=== PATIENT | female | born 2000 | race Caucasian/White ===

== ENCOUNTER 2024-03-21 17:58 | Emergency (ER) | payer OTHER, SELFPAY ==
[2024-03-21 18:06] VITALS: BP 125/82; PULSE 71; TEMP 36.9; O2SAT 97; BMI 27.5
--- NOTE | 2024-03-21 18:27 | ECG_ITS ---
[facility] Test Date: 2024-03-21 Pat Name: BLAS TAPIA Department: Room: - Gender: Female Novel[employer] Worker: : 2000 Requested By: Order Number: [id number] Reading MD: FAITH WILLS Measurements Intervals [place] Rate: 74 P: 61 [place]: 138 QRS: 75 QRSD: 64 T: 68 QT: 364 QTc: 392 Interpretive Statements 1100 Sinus rhythm 1102 Sinus arrhythmia 9110 normal ECG No previous ECG available for comparison Electronically Signed On 03-22-2024 6:47:34 EDT by FAITH WILLS
[2024-03-21 18:37] LABS: Bilirubin Urine NEGATIVE (NEGATIVE); Blood Urine LARGE (NEGATIVE); Clarity Urine SL CLOUDY (CLEAR); Color Urine LT. YELLOW (YELLOW); Glucose Urine UA NEGATIVE (NEGATIVE); Ketones Urine NEGATIVE (NEGATIVE); Leukocyte Esterase Urine SMALL (NEGATIVE); Nitrite Urine NEGATIVE (NEGATIVE); Protein Urine NEGATIVE (NEG/TRACE); Specific Gravity Urine 1.025 (1.005-1.025); Urobilinogen Urine 0.2 EU/dL (0.2-1.0); pH Urine 7.5 (5.0-9.0)
[2024-03-21 18:38] LABS: HCG Qualitative Urine* NEGATIVE (NEGATIVE); Internal Control Within Normal Limits
[2024-03-21 18:40] LABS: Urine Microscopic Indicated YES
[2024-03-21 18:45] LABS: Amorphous Sediment Urine MANY; Bacteria Urine SMALL #/HPF (NONE SEEN); Cast Seen? NONE SEEN #/LPF (NONE SEEN); Crystals Seen? None Seen #/HPF (None Seen); Mucus Urine TRACE (NONE SEEN); Squamous Epithelial Cell Urine FEW #/LPF (NONE/RARE); Urine Culture Indicated YES
[2024-03-21 18:46] LABS: Basophils Absolute Auto 0.1 10^3/uL (0.0-0.1); Eosinophils Absolute Auto 0.6 10^3/uL (0.0-0.7); Eosinophils Percent Auto 8.4 % (0.9-7.0); Hematocrit 36.3 % (36.0-48.0); Hemoglobin 11.4 g/dL (12.0-16.0); Immature Granulocytes Abs Auto 0.02 10^3/uL (0.00-0.03); Immature Granulocytes Pct Auto 0.3 % (0.0-0.5); Lymphocytes Absolute Auto 1.8 10^3/uL (1.2-3.8); Lymphocytes Percent Auto 25.2 % (20.5-60.0); Mean Corpuscular HGB Conc 31.4 g/dL (29.9-35.2); Mean Corpuscular Hemoglobin 28.3 pg (26.7-34.0); Mean Corpuscular Volume 90.1 fL (81.0-99.0); Mean Platelet Volume 10.3 fL (9.5-13.5); Monocytes Absolute Auto 0.4 10^3/uL (0.3-0.8); Monocytes Percent Auto 6.3 % (1.7-12.0); Neutrophils Absolute Auto 4.1 10^3/uL (1.4-6.5); Neutrophils Percent Auto 58.8 % (43.0-75.0); Platelet Count 353 10^3/uL (150-450); Red Blood Count 4.03 10^6/uL (4.20-5.40); Red Cell Distribution Width 16.1 % (11.0-15.0)
[2024-03-21 18:47] LABS: Amphetamine Screen Urine NEGATIVE (NEGATIVE); Barbiturates Screen Urine NEGATIVE (NEGATIVE); Benzodiazepines Screen Urine NEGATIVE (NEGATIVE); Buprenorphine Screen Urine NEGATIVE (NEGATIVE); Cannabinoid Screen Urine NEGATIVE (NEGATIVE); Cocaine Screen Urine NEGATIVE (NEGATIVE); Methadone Screen Urine NEGATIVE (NEGATIVE); Methamphetamines Screen Urine NEGATIVE (NEGATIVE); Opiate Screen Urine NEGATIVE (NEGATIVE); Oxycodone Screen Urine NEGATIVE (NEGATIVE); Phencyclidine Screen Urine NEGATIVE (NEGATIVE); Tricyclic Antidepressant Urine NEGATIVE (NEGATIVE)
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
[2024-03-21 19:04] LABS: Alanine Aminotransferase 15 U/L (14-59); Albumin Globulin Ratio 0.9; Albumin Level 3.4 g/dL (3.4-5.0); Alkaline Phosphatase 111 U/L (46-116); Anion Gap 11.7; Aspartate Amino Transferase 11 U/L (15-37); BUN Creatinine Ratio 10.7; Bilirubin Total 0.2 mg/dL (0.2-1.0); Calcium 8.7 mg/dL (8.5-10.1); Carbon Dioxide 27.4 mmol/L (21.0-32.0); Chloride 104 mmol/L (98-107); Estimated GFR (African America >60 (>=60); Estimated GFR (Non-African Ame >60 (>=60); Globulin 3.7 g/dL; Glucose 96 mg/dL (74-106); Potassium 4.1 mmol/L (3.5-5.1); Salicylate <2.8 mg/dL (<=19.9); Sodium 139 mmol/L (136-145); Total Protein 7.1 g/dL (6.4-8.2)
[2024-03-21 19:07] LABS: Acetaminophen <2.0 ug/mL (10.0-30.0); Ethanol <3 mg/dL
[2024-03-21 19:30] VITALS: PULSE 74
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
[2024-03-21] MEDS: CEPHALEXIN 500 MG CAPSULE PO (21:42)
[2024-03-21 21:44] VITALS: BP 113/75; PULSE 71; TEMP 36.6; O2SAT 100
[2024-03-21 22:47] VITALS: BP 113/75; PULSE 70; TEMP 36.6; O2SAT 100
== END 2024-03-21 22:30 ==
PROVIDERS: Physician Assistant; Emergency Provider Internal Medicine; PCP Family Medicine
DX: F32.9 Major depressive disorder, single episode, unspecified (principal); N39.0 Urinary tract infection, site not specified; F41.9 Anxiety disorder, unspecified
CPT/HCPCS: 36415; 80053; 80179; 80307; 80320; 80329; 81001; 84703; 85025; 87086; 93005; 99285

== ENCOUNTER 2024-09-07 20:15 | Emergency (ER) | payer OTHER, SELFPAY ==
[2024-09-07 20:21] VITALS: BP 97/60; PULSE 88; TEMP 36.8; O2SAT 98; BMI 25.0
--- OUTSIDE RECORDS SUMMARY | 2024-09-07 20:21 | XMS_ITS | CCD ---
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 Name Role Phone DR ISAURA CROWLEY Attending Unavailable KEO, DR DELAROSA Consulting Unavailable KEO, DR DELAROSA Admitting Unavailable Anuja Max MD Primary Care Provider MD Mansoor Anuja A Primary Care Provider MD Gabe Regan Admit Provider [phone] MD Gabe Regan Attending Provider Anuja Max MD Primary Care Provider [phone] Gbae Regan Admitting Unavailable Max, Anuja A Primary Care Unavailable Gabe Regan Attending Unavailable Eleazar Pennington Attending Unavailab le Eleazar Pennington Admitting Unavailab le Max, Anuja A Primary Care Unavailable Anuja Max MD Primary Care Provider OSEI MERCADO Attending Unavailable OSEI MERCADO Referring Unavailable MAX, ANUJA A Primary Care Unavailable OSEI MERCADO Attending Unavailable OSEI MERCADO Referring Unavailable MAX, ANUJA A Primary Care Unavailable DEJAH DAVIES Attending Unavailable MAX, ANUJA A Referring Unavailable MAX, ANUJA A Primary Care Unavailable MAX, ANUJA A Primary Care Unavailable KARY DA SILVA Attending Unavailable MAX, ANUJA A Primary Care Unavailable STEPHEN PEREIRA Attending Unavailable KRYS PATRICIO Referring Unavailable MAX, ANUJA A Primary Care Unavailable OSEI MERCADO Attending Unavailable MAX, ANUJA A Referring Unavailable MAX, ANUJA A Primary Care Unavailable MAX, NAUJA A Primary Care Unavailable DONNIE GALLARDO Attending Unav ailable DONNIE GALLARDO Attending Unav ailable SAMIDONNIE Referring Unav ailable MAX, ANUJA A Primary Care Unavailable MAX, ANUJA A Primary Care Unavailable MAX, ANUJA A Primary Care Unavailable MONROE MURPHY Attending Unavailable MAX, ANUJA A. Primary Care Unavailable SAM MUNIZ Attending Unavailable CONCHA DUQUE Referring Unavailable MAX, ANUJA A Primary Care Unavailable KRKRYS JUDGE M Referring Unavailable MAX, ANUJA A Primary Care Unavailable SONDRA HDZ Referring Unavailable MAX, ANUJA A Primary Care Unavailable SONDRA HDZ Attending Unavailable MAX, ANUJA A Referring Unavailable MAX, ANUJA A Primary Care Unavailable KROTZERSERAFINA M Attending Unavailable MAX, ANUJA A Referring Unavailable MAX, ANUJA A Primary Care Unavailable KROTZER, KRYS M Attending Unavailable MAX, ANUJA A Referring Unavailable MAX, ANUJA A Primary Care Unavailable KROTZERKRYS M Attending Unavailable MAX, ANUJA A Referring Unavailable MAX, ANUJA A Primary Care Unavailable CONCHA DUQUE Attending Unavailable MAX, ANUJA A Referring Unavailable MAX, ANUJA A Primary Care Unavailable MAX, ANUJA A Referring Unavailable MAX, ANUJA A Primary Care Unavailable Allergies Allergy Classification Reported Allergen(s) Allergy Type Date of Onset Reaction(s) Facility (1 source) Penicillin Drug Allergy 7 [facility] Repository (13 sources) Penicillin G; Translations: [PENICILLIN G POTASSIUM] Drug Allergy 4 [facility] (20 sources) Penicillins; Translations: [PENICILLINS] Propensity to adverse reactions to drug 7 [facility] (1 source) Penicillins Drug allergy (disorder) 4 [facility] Repository Medications Current Medications Medication Drug Class(es) Dates Sig (Normalized) Sig (Original) [id number] actuat albuterol 0.09 mg/actuat metered dose inhaler (14 sources) beta2-Adrenergic Agonist take 2 puff(s) by inhalation every six hours as needed for wheezing albuterol (PROVENTIL HFA;VENTOLIN HFA) 90 mcg/actuation inhaler Inhale 2 puffs every 6 (six) hours as needed for wheezing. Active ARIPiprazole 5 mg oral tablet (12 sources) Atypical Antipsychotic Start: 03-23-2024 take 5 mg by mouth at bedtime Aripiprazole Active 5 MG PO Bedtime March 23, 2024 12:00am Start: 03-22-2024 End: 03-23-2024 take 2 mg by mouth at bedtime Aripiprazole Discontinue d 2 MG PO Bedtime March 22, 2024 12:00am March 23, 2024 10:45am take 1 tablet by larry th in the morning ARIPiprazole (ABILIFY) 10 mg tablet Take 1 tablet (10 mg total) by mouth in the morning. Active bisacodyl 5 mg delayed release oral tablet (1 source) Stimulant Laxative Start: 09-06-2024 take 1 tablet by mouth once daily as needed for constipation bisacodyL (DULCOLAX) 5 mg EC tablet Take 1 tablet (5 mg total) by mouth daily as needed for constipation. 14 tablet 09/06/2024 Active cephalexin 500 mg oral capsule (2 sources) Cephalosporin Antibacterial Start: 03-22-2024 End: 03-23-2024 take 500 mg by mouth three times daily Cephalexin Active 500 MG PO Three times daily 04 03March 23, 2024 10:45am take for 5 days. doxylamine succinate 25 mg oral tablet (9 sources) Start: 07-12-2024 End: 08-30-2024 take 1 tablet by mouth once daily as needed for nausea doxylamine (UNISOM) 25 mg tablet Indications: Nausea/vomiting in Take 1 tablet (25 mg total) by mouth nightly as needed for sleep or nausea. 30 tablet 1 07/12/2024 08/30/2024 Discontinued (Alternate therapy) fluconazole 150 mg oral tablet (1 source) Azole Antifungal Start: 02-16-2024 End: 02-19-2024 fluconazole (DIFLUCAN) 150 mg tablet Indications: Vaginal yeast infection Take one tablet by mouth today. May repeat in 3 days if symptoms persist. 2 tablet 02/16/2024 02/19/2024 Active hydrOXYzine pamoate 50 mg oral capsule (1 source) Antihistamine Start: 03-24-2024 take 50 mg by mouth every six hours Hydroxyzine Pamoate Active 50 MG PO Q6H March 24, 2024 12:00am metoclopramide 10 mg oral tablet (8 sources) Dopamine-2 Receptor Antagonist Start: 07-26-2024 End: 08-30-2024 take 1 tablet by mouth every six hours metoclopramide (REGLAN) 10 mg tablet Take 1 tablet (10 mg total) by mouth every 6 (six) hours. 30 tablet 07/26/2024 08/30/2024 Discontinued (Alternate therapy) Start: 07-17-2024 take 1 tablet by larry th every six hours metoclopramide (REGLAN) 10 mg tablet Take 1 tablet (10 mg total) by mouth every 6 (six) hours. 30 tablet 07/17/2024 Active metroNIDAZOLE 500 mg oral tablet (1 source) Nitroimidazole Antimicrobial Start: 02-16-2024 End: 02-23-2024 take 1 tablet by mouth in the morning, then take 1 tablet by mouth at bedtime metroNIDAZOLE (FLAGYL) 500 mg tablet Indications: BV (bacterial vaginosis) Take 1 tablet (500 mg total) by mouth in the morning and 1 tablet (500 mg total) before bedtime. Do all this for 7 days. 14 tablet 02/16/2024 02/23/2024 Active nicotine 2 mg chewing gum (1 source) Cholinergic Nicotinic Agonist Start: 03-23-2024 Nicotine (Polacrilex) Active 2 MG BUCCAL Every 2 hours March 23, 2024 12:00am ondansetron 4 mg disintegrating oral tablet (17 sources) Serotonin-3 Receptor Antagonist Start: 07-27-2024 End: 08-30-2024 ondansetron ODT (ZOFRAN ODT) 4 mg disintegrating tablet Indications: Nausea/vomiting in Dissolve 1 tablet (4 mg total) on tongue every 8 (eight) hours as needed for nausea or vomiting. 30 tablet 08/30/2024 Active Start: 07-29-2022 End: 08-26-2023 take 1 tablet by mouth every eight hours as needed for nausea ondansetron ODT (ZOFRAN ODT) 4 mg disintegrating tablet Dissolve 1 tablet (4 mg total) on tongue every 8 (eight) hours as needed for nausea for up to 10 doses. 10 tablet 0 07/29/2022 08/26/2023 Discontinued (Therapy completed) vits62/FA/om3/dha/epa ( GUMMY ORAL) (14 sources) vits62/FA/om3/dha/epa ( GUMMY ORAL) Take by mouth. Active pyridoxine hydrochloride 25 mg oral tablet (10 sources) Start : 07-12 End: 08-30 take 1 tablet by mouth at bedtime vitamin B-6 25 MG tablet Indications: Nausea/vomiting in TAKE 1 TABLET BY MOUTH IN THE MORNING, AT NOON, IN THE EVENING AND BEFORE BEDTIME 360 tablet 1 08/05/2024 08/30/2024 Discontinued (Alternate therapy) sertraline 100 mg oral tablet (11 sources) Serotonin Reuptake Inhibitor Start : 03-22 take 100 mg by mouth at bedtime Sertraline Active 100 MG PO Bedtime March 22, 2024 12:00am take 1 tablet by mouth in the mo rning sertraline (ZOLOFT) 25 mg tablet Take 1 tablet (25 mg total) by mouth in the morning. Active traZODone hydrochloride 50 mg oral tablet (1 source) Serotonin Reuptake Inhibitor Start: 03-23-2024 take 50 mg by mouth once daily at bedtime Trazodone Active 50 MG PO Daily at bedtime March 23, 2024 12:00am Completed/Discontinued Medications Medication Drug Class(es) Dates Sig (Normalized) Sig (Original) benzocaine 6 mg / menthol 10 mg oral lozenge (2 sources) Standardized Chemical Allergen Start: 07-29-2022 End: 08-26-2023 take 1 tablet by mouth every two hours as needed benzocaine-menthoL (CHLORASEPTIC SORE THROAT) 6-10 mg lozenge Dissolve 1 lozenge in the mouth every 2 (two) hours as needed for sore throat. 100 tablet 0 07/29/2022 08/26/2023 Discontinued (Therapy completed) benzonatate 100 mg oral capsule (2 sources) Non-narcotic Antitussive Start: 07-29-2022 End: 08-26-2023 take 1 capsule by mouth every eight hours benzonatate (TESSALON PERLES) 100 mg capsule Take 1 capsule (100 mg total) by mouth every 8 (eight) hours. 21 capsule 0 07/29/2022 08/26/2023 Discontinued (Therapy completed) ibuprofen 800 mg oral tablet (2 sources) Nonsteroidal Anti-inflammatory Drug Start: 07-29-2022 End: 08-26-2023 take 1 tablet by mouth three times daily ibuprofen (MOTRIN) 800 mg tablet Take 1 tablet (800 mg total) by mouth 3 (three) times a day. 21 tablet 0 07/29/2022 08/26/2023 Discontinued (Therapy completed) Problems Active Problems Problem Classification Problem Date Documented Da te Episodic/Chronic Abdominal pain (3 sources) Unspecified abdominal pain; Translations: [Abdominal pain] Onset: 04-18-2024 Episodic Anxiety disorders (17 sources) Anxiety; Translations: [Anxiety disorder, unspecified] Onset: 03-21-2024 03-22-2024 Chronic Asthma (14 sources) Mild intermittent asthma; Translations: [Mild intermittent asthma, uncomplicated] Onset: 07-03-2024 07-03-2024 Chronic Menstrual disorders (3 sources) Dysmenorrhea, unspecified; Translations: [Irregular menstruation, unspecified] Onset: 04-17-2024 04-17-2024 Chronic Mood disorders (20 sources) Depressive disorder; Translations: [Depression] Onset: 03-21-2024 03-22-2024 Chronic Other complications of (18 sources) Vomiting of , unspecified; Translations: [Unspecified vomiting of , unspecified as to episode of care or not applicable] Onset: 07-12-2024 07-12-2024 Episodic Other complications of (1 source) Mild hyperemesis gravidarum; Translations: [Mild hyperemesis gravidarum] Onset: 07-17-2024 Episodic Other complications of (1 source) Other specified related conditions, first trimester; Translations: [Other specified related conditions, first trimester] Onset: 06-14-2024 Episodic Other and delivery including normal (6 sources) First trimester ; Translations: [Encounter for supervision of normal , unspecified, first trimester] Onset: 08-02-2024 07-03-2024 Episodic Other screening for suspected conditions (not mental disorders or infectious disease) (6 sources) Encounter for screening for malignant neoplasm of cervix; Translations: [Patient encounter status] Onset: 07-28-2021 Episodic Personality disorders (17 sources) Dependent personality disorder; 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] Onset: 03-21-2024 03-22-2024 Chronic Residual codes; unclassified (1 source) Gestation period, 10 weeks; Translations: [10 weeks gestation of ] 08-02-2024 Episodic Unclassified (1 source) Vomiting During Onset: 07-17-2024 Unclassified (1 source) Earache Onset: 12-21-2023 Unclassified (1 source) PAIN RIGHT EAR Onset: 12-21-2023 Unclassified (1 source) New Patient Onset: 08-26-2023 Unclassified (1 source) Routine Visit Onset: 08-30-2024 Unclassified (1 source) Initial Visit Onset: 08-02-2024 Unclassified (1 source) Annual Exam Onset: 11-28-2023 Past or Other Problems Problem Classification Problem Date Documented Date Episodic/Chronic Cardiac dysrhythmias (1 source) Palpitations Onset: 11-14-2023 Episodic Conditions associated with dizziness or vertigo (13 sources) Dizziness; Translations: [Dizziness and giddiness] Onset: 11-14-2023 08-26-2023 Episodic Genitourinary symptoms and ill-defined conditions (4 sources) Urinary frequency; Translations: [Dysuria] Onset: 02-15-2024 02-15-2024 Episodic Immunizations and screening for infectious disease (5 sources) Encounter for screening for human papillomavirus (HPV); Translations: [Encounter for screening for infections with a predominantly sexual mode of transmission] Onset: 08-04-2021 02-15-2024 Episodic Inflammatory diseases of female pelvic organs (1 source) Bacterial vaginosis; Translations: [Acute vaginitis] 02-16-2024 Episodic Mood disorders (20 sources) Mood disorders Onset: 11-28-2023 11-28-2023 Mycoses (1 source) Candidiasis of vagina; Translations: [Vaginal yeast infection] 02-16-2024 Episodic Other ear and sense organ disorders (1 source) Unspecified acute noninfective otitis externa, right ear; Translations: [Unspecified acute noninfective otitis externa, right ear] Onset: 12-21-2023 Episodic Other female genital disorders (2 sources) Other specified noninflammatory disorders of vagina; Translations: [Other specified noninflammatory disorders of vagina] Onset: 02-15-2024 Episodic Other female genital disorders (2 sources) Unspecified condition associated with female genital organs and menstrual cycle; Translations: [Unspecified condition associated with female genital organs and menstrual cycle] Onset: 02-15-2024 Episodic Other female genital disorders (1 source) Pruritus of vagina; Translations: [Other specified noninflammatory disorders of vagina] 02-15-2024 Episodic Other female genital disorders (1 source) Burning sensation of vagina; Translations: [Unspecified condition associated with female genital organs and menstrual cycle] 02-15-2024 Episodic Other lower respiratory disease (1 source) Shortness of breath Onset: 11-14-2023 Episodic Otitis media and related conditions (1 source) Otitis media, unspecified, unspecified ear; Translations: [Otitis media, unspecified, unspecified ear] Onset: 12-21-2023 Episodic Unclassified (20 sources) Onset: 11-28-2023 11-28-2023 Urinary tract infections (1 source) Acute cystitis without hematuria; Translations: [Acute cystitis without hematuria] Onset: 03-05-2024 Episodic Results Test Name Value Interpretation Reference Range Facility CHLAMYDIA/GC BY PCRon 2024 CHLAMYDIA/GC BY PCR SPECIMEN SOURCE CERVIX CHLAMYDIA DNA(PCR) Negative (qualifier value) Chlamydia trachomatis not detected by nucleic acid amplification. This does not exclude the possibility of infection because results are dependent on adequate specimen collection. GONORRHOEAE DNA(PCR) Negative (qualifier value) Neisseria gonorrhoeae not detected by nucleic acid amplification. This does not exclude the possibility of infection because results are dependent on adequate specimen collection. Normal [facility] Comment on above: Performed By: #### C GS #### [facility] ([id number]) [address], [address] [place] [address] BASIC METABOLIC PANLon 07-26 Anion gap [Moles/Vol] 9 mmol/L Normal 5-15 [facility] Comment on above: Performed By: #### 2 0415-6 #### [facility] ([id number]) [address], [address] [place] [address] Calcium [Mass/Vol] 9.1 mg/dL Normal 8.5-10.5 [facility] Comment on above: Performed By: #### 2 0415-6 #### [facility] ([id number]) [address], [address] [place] [address] Chloride [Moles/Vol] 104 mmol/L Normal 98-109 [facility] Comment on above: Performed By: #### 2 0415-6 #### [facility] ([id number]) [address], [address] [place] [address] CO2 [Moles/Vol] 22 mmol/L Normal 22-32 [facility] Comment on above: Performed By: #### 2 0415-6 #### [facility] ([id number]) [address] [address] [place] [address] Creatinine [Mass/Vol] 0.54 mg/dL Normal 0.40-1.00 [facility] Comment on above: Result Comment: METH OD TRACEABLE TO IDMS STANDARD Performed By: #### 2 0415-6 #### [facility] ([id number]) [address], [address] [place] [address] eGFR (CKD-EPI) NON-RACE DEPENDENT >90 Normal >59 [facility] Comment on above: Result Comment: Reported eGFR is based on the CKD-EPI 2020 equation that does not use a race coefficient. Performed By: #### 2 0415-6 #### [facility] ([id number]) [address], [address] [place] [address] Glucose [Mass/Vol] 92 mg/dL Normal 65-99 [facility] Comment on above: Performed By: #### 2 0415-6 #### [facility] ([id number]) [address], [address] [place] [address] Potassium [Moles/Vol] 3.1 mmol/L Low 3.5-5.0 [facility] Comment on above: Performed By: #### 2 0415-6 #### [facility] ([id number]) [address], [address] [place] [address] Sodium [Moles/Vol] 135 mmol/L Normal 134-146 [facility] Comment on above: Performed By: #### 2 0415-6 #### [facility] ([id number]) [address], [address] [place] [address] Urea nitrogen [Mass/Vol] mg/dL Low 5-23 [facility] Comment on above: Performed By: #### 2 0415-6 #### [facility] ([id number]) [address], [address] [place] [address] CBC AND AUTO DIFFon 07-26-20 ABSOLUTE BASOPHIL 0.0 X10E9/L Normal 0.0-0.2 [facility] Comment on above: Performed By: #### 2 0415-6 #### [facility] ([id number]) [address], [address] [place] [address] ABSOLUTE NEUTROPHIL 5.6 X10E9/L Normal 1.5-6.6 [facility] Comment on above: Performed By: #### 2 0415-6 #### [facility] ([id number]) [address] [facility] [address] [place] [address] Basophils/100 WBC (Bld) 0.5 % Normal [facility] Comment on above: Performed By: #### 2 0415-6 #### [facility] ([id number]) [address] [address] [place] [address] Eosinophils (Bld) [#/Vol] 0.2 10*3/uL Normal 0.0-0.4 [facility] Comment on above: Performed By: #### 2 0415-6 #### [facility] ([id number]) [address] [address] [place] [address] Eosinophils/100 WBC (Bld) 2.4 % Normal [facility] Comment on above: Performed By: #### 2 0415-6 #### [facility] ([id number]) [address], [address] [place] [address] Erythrocyte distribution width (RBC) [Ratio] 15.6 % High 11.5-15.0 [facility] Comment on above: Performed By: #### 2 0415-6 #### [facility] ([id number]) [address] [address] [place] [address] Hematocrit (Bld) [Volume fraction] 37.4 % Normal 35-47 [facility] Comment on above: Performed By: #### 2 0415-6 #### [facility] ([id number]) [address] [address] [place] [address] Hemoglobin (Bld) [Mass/Vol] 12.6 g/dL Normal 11.7-15.5 [facility] Comment on above: Performed By: #### 2 0415-6 #### [facility] ([id number]) [address] [address] [place] [address] Lymphocytes (Bld) [#/Vol] 1.8 10*3/uL Normal 1.0-3.5 [facility] Comment on above: Performed By: #### 2 0415-6 #### [facility] ([id number]) [address] [address] [place] [address] Lymphocytes/100 WBC (Bld) 21.6 % Normal [facility] Comment on above: Performed By: #### 2 0415-6 #### [facility] ([id number]) [address] [address] [place] [address] MCH (RBC) [Entitic mass] 29.2 pg Normal 27-34 [facility] Comment on above: Performed By: #### 2 0415-6 #### [facility] ([id number]) [address] [address] [place] [address] MCHC (RBC) [Mass/Vol] 33.7 g/dL Normal 32-36 [facility] Comment on above: Performed By: #### 2 0415-6 #### [facility] ([id number]) [address] [place] [address] MCV (RBC) [Entitic vol] 87 fL Normal 80-100 [facility] Comment on above: Performed By: #### 2 0415-6 #### [facility] ([id number]) [address] [place] [address] Monocytes (Bld) [#/Vol] 0.5 10*3/uL Normal 0-0.9 [facility] Comment on above: Performed By: #### 2 0415-6 #### [facility] ([id number]) [address], [address] [place] [address] Monocytes/100 WBC (Bld) 6.5 % Normal [facility] Comment on above: Performed By: #### 2 0415-6 #### [facility] ([id number]) [address], [address] [place] [address] Neutrophils/100 WBC (Bld) 69.0 % Normal [facility] Comment on above: Performed By: #### 2 0415-6 #### [facility] ([id number]) [address], [address] [place] [address] Platelet mean volume (Bld) [Entitic vol] 10.0 fL Normal 7-12 [facility] Comment on above: Performed By: #### 2 0415-6 #### [facility] ([id number]) [address], [address] [place] [address] Platelets (Bld) [#/Vol] 260 10*3/uL Normal 150-450 [facility] Comment on above: Performed By: #### 2 0415-6 #### [facility] ([id number]) [address], [address] [place] [address] RBC COUNT 4.31 X10E12/L Normal 3.80-5.20 [facility] Comment on above: Performed By: #### 2 0415-6 #### [facility] ([id number]) [address], [address] [place] [address] WBC (Bld) [#/Vol] 8.1 10*3/uL Normal 4.0-11.0 [facility] Comment on above: Performed By: #### 2 0415-6 #### [facility] ([id number]) [address] [place] [address] HCG ( test) Ql (U)o n 07-26-2024 Beta HCG ( test) Ql (U) Positive Abnormal NEG [facility] Comment on above: Performed By: #### N UM #### [facility] ([id number]) [address] [place] [address], [place] [address] HCG.beta subunit IA 3rd IS Q non 07-26-2024 HCG.beta subunit Qn [id number] m[IU]/mL Normal [facility] Comment on above: Result Comment: NEW REFERENCE RANGE WEEKS (SINCE LMP) MIU/mL 3 WEEKS 5 - 50 4 WEEKS 5 - 426 5 WEEKS 18 - 7,340 6 WEEKS 1,080 - 56,500 7-8 WEEKS 7,650 - 229,000 9-12 WEEKS 25,700 - 288,000 13-16 WEEKS 13,300 - 254,000 17-24 WEEKS 4,060 - 165,400 25-40 WEEKS 3,640 - 117,000 MALES AND NON- FEMALES - <5 MIU/mL This test has been FDA approved for use in only. Elevated levels are not necessarily diagnostic for trophoblastic or nontrophoblastic neoplasms. Performed By: #### N UM #### [facility] ([id number]) [address] [place] [address] MAGNESIUMon 07-26-2024 Magnesium [Mass/Vol] 1.8 mg/dL Normal 1.8-2.6 [facility] Comment on above: Performed By: #### N UM #### [facility] ([id number]) [address] [place] [address] URINE CULTUREon 07-26-2024 Bacteria identified Cx Nom (U) CULTURE RESULTS 50-100,000 ORGANISMS/ML NORMAL UROGENITAL MICHELLE Normal [facility] Comment on above: Performed By: #### N UM #### [facility] ([id number]) [address] [place] [address] URN MACROSCOPIC NURon 2023 BILIRUBIN EULA MODERATE Abnormal NEG [facility] Comment on above: Performed By: #### N UM #### [facility] ([id number]) [address] [place] [address] BLOOD/HGB EULA MODERATE Abnormal NEG [facility] Comment on above: Performed By: #### N UM #### [facility] ([id number]) [address] [place] [address] GLUCOSE EULA 100 mg/dL Abnormal NEG [facility] Comment on above: Performed By: #### N UM #### [facility] ([id number]) [address] [place] [address] KETONES EULA 80 mg/dL Abnormal NEG [facility] Comment on above: Performed By: #### N UM #### [facility] ([id number]) [address] [place] [address] LEUKOCYTE ESTERASE EULA Trace Abnormal NEG [facility] Comment on above: Performed By: #### N UM #### [facility] ([id number]) [address] [place] [address] NITRITE EULA Negative Normal NEG [facility] Comment on above: Performed By: #### N UM #### [facility] ([id number]) [address] [place] [address] PH EULA 6.0 Normal 5.0-8.5 [facility] Comment on above: Performed By: #### N UM #### [facility] ([id number]) [address] [place] [address] PROTEIN EULA 30 mg/dL Abnormal NEG [facility] Comment on above: Performed By: #### N UM #### [facility] ([id number]) [address] [place] [address] SPECIFIC GRAVITY EULA >=1.030 Normal 1.003-1.035 [facility] Comment on above: Performed By: #### N UM #### [facility] ([id number]) [address] [place] [address] UROBILINOGEN EULA 2.0 eu/dL High <1.1 [facility] Comment on above: Performed By: #### N UM #### [facility] ([id number]) [address] [place] [address] US PREG LESS THAN 14 WKS WIT H TRANSVAGINALon 07-26-2024 US PREG LESS THAN 14 WKS WITH TRANSVAGINAL US PREG LESS THAN 14 WKS WITH TRANSVAGINAL US PREG LESS THAN 14 WKS WITH TRANSVAGINAL 07/26/2024 10:10 PM INDICATION: Vomiting, pelvic pain COMPARISON: None TECHNIQUE: Ultrasound images of the pelvis were obtained. Color and spectral waveform Doppler images also obtained. FINDINGS: UTERUS SIZE: 8.7 x 7.1 x 9.2 cm MYOMETRIUM: Normal morphology and echotexture. GESTATION LOCATION: Intrauterine. APPEARANCE: Single gestation. pole present. Yolk sac present measuring 4 mm. Gestational sac morphology unremarkable. Appropriate amniotic fluid volume subjectively. HEART RATE: 171 bpm CROWN LUMP LENGTH: 2.83 cm correlating to an estimated gestational age of 9 weeks and 4 days. RIGHT OVARY SIZE: 3.7 x 1.3 x 1.4 cm PARENCHYMA: Normal echotexture. No masses. DOPPLER FLOW: Appropriate color Doppler flow. LEFT OVARY SIZE: 3.2 x 1.6 x 3.3 cm PARENCHYMA: Heterogeneous area with peripheral color Doppler flow, possibly corpus luteum. DOPPLER FLOW: Appropriate color Doppler flow. OTHER FREE FLUID: None. URINARY BLADDER: Visualized portions are unremarkable. IMPRESSION: Single live intrauterine with an estimated gestational age of 9 weeks and 4 days. Finalized by Hong Calero DO on 07/26/2024 10:48 PM Normal [facility] BASIC METABOLIC PANLon 07-17 Anion gap [Moles/Vol] 10 mmol/L Normal 5-15 [facility] Comment on above: Performed By: #### 2 0415-6 #### [facility] ([id number]) [address], [address] [place] [address] Calcium [Mass/Vol] 8.8 mg/dL Normal 8.5-10.5 [facility] Comment on above: Performed By: #### 2 0415-6 #### [facility] ([id number]) [address], [address] [place] [address] Chloride [Moles/Vol] 105 mmol/L Normal 98-109 [facility] Comment on above: Performed By: #### 2 0415-6 #### [facility] ([id number]) [address], [address] [place] [address] CO2 [Moles/Vol] 20 mmol/L Low 22-32 [facility] Comment on above: Performed By: #### 2 0415-6 #### [facility] ([id number]) [address], [address] [place] [address] Creatinine [Mass/Vol] 0.56 mg/dL Normal 0.40-1.00 [facility] Comment on above: Result Comment: METH OD TRACEABLE TO IDMS STANDARD Performed By: #### 2 0415-6 #### [facility] ([id number]) [address], [address] [place] [address] eGFR (CKD-EPI) NON-RACE DEPENDENT >90 Normal >59 [facility] Comment on above: Result Comment: Reported eGFR is based on the CKD-EPI 2020 equation that does not use a race coefficient. Performed By: #### 2 0415-6 #### [facility] ([id number]) [address], [address] [place] [address] Glucose [Mass/Vol] 106 mg/dL High 65-99 [facility] Comment on above: Performed By: #### 2 0415-6 #### [facility] ([id number]) [address] [address] [place] [address] Potassium [Moles/Vol] 3.4 mmol/L Low 3.5-5.0 [facility] Comment on above: Performed By: #### 2 0415-6 #### [facility] ([id number]) [address], [address] [place] [address] Sodium [Moles/Vol] 135 mmol/L Normal 134-146 [facility] Comment on above: Performed By: #### 2 0415-6 #### [facility] ([id number]) [address] [address] [place] [address] Urea nitrogen [Mass/Vol] 7 mg/dL Normal 5-23 [facility] Comment on above: Performed By: #### 2 0415-6 #### [facility] ([id number]) [address] [address] [place] [address] CBC AND AUTO DIFFon 12-17-20 24 ABSOLUTE BASOPHIL 0.0 X10E9/L Normal 0.0-0.2 [facility] Comment on above: Performed By: #### 2 0415-6 #### [facility] ([id number]) [address] [address] [place] [address] ABSOLUTE NEUTROPHIL 6.8 X10E9/L High 1.5-6.6 [facility] Comment on above: Performed By: #### 2 0415-6 #### [facility] ([id number]) [address], [address] [place] [address] Basophils/100 WBC (Bld) 0.1 % Normal [facility] Comment on above: Performed By: #### 2 0415-6 #### [facility] ([id number]) [address], [address] [place] [address] Eosinophils (Bld) [#/Vol] 0.1 10*3/uL Normal 0.0-0.4 [facility] Comment on above: Performed By: #### 2 0415-6 #### [facility] ([id number]) [address], [address] [place] [address] Eosinophils/100 WBC (Bld) 1.5 % Normal [facility] Comment on above: Performed By: #### 2 0415-6 #### [facility] ([id number]) [address], [address] [place] [address] Erythrocyte distribution width (RBC) [Ratio] 16.2 % High 11.5-15.0 [facility] Comment on above: Performed By: #### 2 0415-6 #### [facility] ([id number]) [address], [address] [place] [address] Hematocrit (Bld) [Volume fraction] 36.9 % Normal 35-47 [facility] Comment on above: Performed By: #### 2 0415-6 #### [facility] ([id number]) [address], [address] [place] [address] Hemoglobin (Bld) [Mass/Vol] 12.2 g/dL Normal 11.7-15.5 [facility] Comment on above: Performed By: #### 2 0415-6 #### [facility] ([id number]) [address], [address] [place] [address] Lymphocytes (Bld) [#/Vol] 1.0 10*3/uL Normal 1.0-3.5 [facility] Comment on above: Performed By: #### 2 0415-6 #### [facility] ([id number]) [address], [address] [place] [address] Lymphocytes/100 WBC (Bld) 11.9 % Normal [facility] Comment on above: Performed By: #### 2 0415-6 #### [facility] ([id number]) [address], [address] [place] [address] MCH (RBC) [Entitic mass] 28.9 pg Normal 27-34 [facility] Comment on above: Performed By: #### 2 0415-6 #### [facility] ([id number]) [address], [address] [place] [address] MCHC (RBC) [Mass/Vol] 33.2 g/dL Normal 32-36 [facility] Comment on above: Performed By: #### 2 0415-6 #### [facility] ([id number]) [address], [address] [place] [address] MCV (RBC) [Entitic vol] 87 fL Normal 80-100 [facility] Comment on above: Performed By: #### 2 0415-6 #### [facility] ([id number]) [address], [address] [place] [address] Monocytes (Bld) [#/Vol] 0.4 10*3/uL Normal 0-0.9 [facility] Comment on above: Performed By: #### 2 0415-6 #### [facility] ([id number]) [address], [address] [place] [address] Monocytes/100 WBC (Bld) 4.8 % Normal [facility] Comment on above: Performed By: #### 2 0415-6 #### [facility] ([id number]) [address], [address] [place] [address] Neutrophils/100 WBC (Bld) 81.7 % Normal [facility] Comment on above: Performed By: #### 2 0415-6 #### [facility] ([id number]) [address], [address] [place] [address] Platelet mean volume (Bld) [Entitic vol] 9.7 fL Normal 7-12 [facility] Comment on above: Performed By: #### 2 0415-6 #### [facility] ([id number]) [address], [address] [place] [address] Platelets (Bld) [#/Vol] 264 10*3/uL Normal 150-450 [facility] Comment on above: Performed By: #### 2 0415-6 #### [facility] ([id number]) [address], [address] [place] [address] RBC COUNT 4.23 X10E12/L Normal 3.80-5.20 [facility] Comment on above: Performed By: #### 2 0415-6 #### [facility] ([id number]) [address], [address] [place] [address] WBC (Bld) [#/Vol] 8.3 10*3/uL Normal 4.0-11.0 [facility] Comment on above: Performed By: #### 2 0415-6 #### [facility] ([id number]) [address] [address] [place] [address] URN MACROSCOPIC NURon 2023 BILIRUBIN EULA Small Abnormal NEG [facility] Comment on above: Performed By: #### 2 0415-6 #### [facility] ([id number]) [address] [place] [address] BLOOD/HGB EULA Small Abnormal NEG [facility] Comment on above: Performed By: #### 2 0415-6 #### [facility] ([id number]) [address] [place] [address] GLUCOSE EULA Negative Normal NEG [facility] Comment on above: Performed By: #### 2 0415-6 #### [facility] ([id number]) [address], [address] [place] [address] KETONES EULA >=160 Abnormal NEG [facility] Comment on above: Performed By: #### 2 0415-6 #### [facility] ([id number]) [address], [address] [place] [address] LEUKOCYTE ESTERASE EULA Negative Normal NEG [facility] Comment on above: Performed By: #### 2 0415-6 #### [facility] ([id number]) [address] [place] [address] NITRITE EULA Negative Normal NEG [facility] Comment on above: Performed By: #### 2 0415-6 #### [facility] ([id number]) [address] [place] [address] PH EULA 6.0 Normal 5.0-8.5 [facility] Comment on above: Performed By: #### 2 0415-6 #### [facility] ([id number]) [address] [place] [address] PROTEIN EULA 100 mg/dL Abnormal NEG [facility] Comment on above: Performed By: #### 2 0415-6 #### [facility] ([id number]) [address] [place] [address] SPECIFIC GRAVITY EULA >=1.030 Normal 1.003-1.035 [facility] Comment on above: Performed By: #### 2 0415-6 #### [facility] ([id number]) [address], [address] [place] [address] UROBILINOGEN EULA 0.2 eu/dL Normal <1.1 [facility] Comment on above: Performed By: #### 2 0415-6 #### [facility] ([id number]) [address], [address] [place] [address] CBC AND AUTO DIFFon 06-14-20 24 ABSOLUTE BASOPHIL 0.0 X10E9/L Normal 0.0-0.2 [facility] Comment on above: Performed By: #### 2 0415-6 #### [facility] ([id number]) [address], [address] [place] [address] ABSOLUTE NEUTROPHIL 5.9 X10E9/L Normal 1.5-6.6 [facility] Comment on above: Performed By: #### 2 0415-6 #### [facility] ([id number]) [address], [address] [place] [address] Basophils/100 WBC (Bld) 0.5 % Normal [facility] Comment on above: Performed By: #### 2 0415-6 #### [facility] ([id number]) [address], [address] [place] [address] Eosinophils (Bld) [#/Vol] 0.5 10*3/uL High 0.0-0.4 [facility] Comment on above: Performed By: #### 2 0415-6 #### [facility] ([id number]) [address], [address] [place] [address] Eosinophils/100 WBC (Bld) 5.6 % Normal [facility] Comment on above: Performed By: #### 2 0415-6 #### [facility] ([id number]) [address], [address] [place] [address] Erythrocyte distribution width (RBC) [Ratio] 16.9 % High 11.5-15.0 [facility] Comment on above: Performed By: #### 2 0415-6 #### [facility] ([id number]) [address] [place] [address] Hematocrit (Bld) [Volume fraction] 37.5 % Normal 35-47 [facility] Comment on above: Performed By: #### 2 0415-6 #### [facility] ([id number]) [address] [address] [place] [address] Hemoglobin (Bld) [Mass/Vol] 12.2 g/dL Normal 11.7-15.5 [facility] Comment on above: Performed By: #### 2 0415-6 #### [facility] ([id number]) [address], [address] [place] [address] Lymphocytes (Bld) [#/Vol] 2.1 10*3/uL Normal 1.0-3.5 [facility] Comment on above: Performed By: #### 2 0415-6 #### [facility] ([id number]) [address], [address] [place] [address] Lymphocytes/100 WBC (Bld) 22.8 % Normal [facility] Comment on above: Performed By: #### 2 0415-6 #### [facility] ([id number]) [address], [address] [place] [address] MCH (RBC) [Entitic mass] 28.1 pg Normal 27-34 [facility] Comment on above: Performed By: #### 2 0415-6 #### [facility] ([id number]) [address], [address] [place] [address] MCHC (RBC) [Mass/Vol] 32.5 g/dL Normal 32-36 [facility] Comment on above: Performed By: #### 2 0415-6 #### [facility] ([id number]) [address], [address] [place] [address] MCV (RBC) [Entitic vol] 87 fL Normal 80-100 [facility] Comment on above: Performed By: #### 2 0415-6 #### [facility] ([id number]) [address], [address] [place] [address] Monocytes (Bld) [#/Vol] 0.8 10*3/uL Normal 0-0.9 [facility] Comment on above: Performed By: #### 2 0415-6 #### [facility] ([id number]) [address], [address] [place] [address] Monocytes/100 WBC (Bld) 8.5 % Normal [facility] Comment on above: Performed By: #### 2 0415-6 #### [facility] ([id number]) [address], [address] [place] [address] Neutrophils/100 WBC (Bld) 62.6 % Normal [facility] Comment on above: Performed By: #### 2 0415-6 #### [facility] ([id number]) [address] [place] [address] Platelet mean volume (Bld) [Entitic vol] 9.2 fL Normal 7-12 [facility] Comment on above: Performed By: #### 2 0415-6 #### [facility] ([id number]) [address], [address] [place] [address] Platelets (Bld) [#/Vol] 339 10*3/uL Normal 150-450 [facility] Comment on above: Performed By: #### 2 0415-6 #### [facility] ([id number]) [address], [address] [place] [address] RBC COUNT 4.33 X10E12/L Normal 3.80-5.20 [facility] Comment on above: Performed By: #### 2 0415-6 #### [facility] ([id number]) [address], [address] [place] [address] WBC (Bld) [#/Vol] 9.4 10*3/uL Normal 4.0-11.0 [facility] Comment on above: Performed By: #### 2 0415-6 #### [facility] ([id number]) [address], [address] [place] [address] COMPREHENSIVE METABOLIC PANE Aly 06-14-2024 Albumin [Mass/Vol] 3.9 g/dL Normal 3.2-5.3 [facility] Comment on above: Performed By: #### 2 0415-6 #### [facility] ([id number]) [address], [address] [place] [address] ALP [Catalytic activity/Vol] 83 U/L Normal 39-130 [facility] Comment on above: Performed By: #### 2 0415-6 #### [facility] ([id number]) [address], [address] [place] [address] ALT [Catalytic activity/Vol] 13 U/L Normal 0-31 [facility] Comment on above: Performed By: #### 2 0415-6 #### [facility] ([id number]) [address] [place] [address] Anion gap [Moles/Vol] 8 mmol/L Normal 5-15 [facility] Comment on above: Performed By: #### 2 0415-6 #### [facility] ([id number]) [address] [place] [address] AST [Catalytic activity/Vol] 17 U/L Normal 0-41 [facility] Comment on above: Performed By: #### 2 0415-6 #### [facility] ([id number]) [address] [place] [address] Bilirubin [Mass/Vol] 0.4 mg/dL Normal 0.3-1.2 [facility] Comment on above: Performed By: #### 2 0415-6 #### [facility] ([id number]) [address], [address] [place] [address] Calcium [Mass/Vol] 9.0 mg/dL Normal 8.5-10.5 [facility] Comment on above: Performed By: #### 2 0415-6 #### [facility] ([id number]) [address], [address] [place] [address] Chloride [Moles/Vol] 105 mmol/L Normal 98-109 [facility] Comment on above: Performed By: #### 2 0415-6 #### [facility] ([id number]) [address] [place] [address] CO2 [Moles/Vol] 22 mmol/L Normal 22-32 [facility] Comment on above: Performed By: #### 2 0415-6 #### [facility] ([id number]) [address] [place] [address] Creatinine [Mass/Vol] 0.62 mg/dL Normal 0.40-1.00 [facility] Comment on above: Result Comment: METH OD TRACEABLE TO IDMS STANDARD Performed By: #### 2 0415-6 #### [facility] ([id number]) [address], [address] [place] [address] eGFR (CKD-EPI) NON-RACE DEPENDENT >90 Normal >59 [facility] Comment on above: Result Comment: Reported eGFR is based on the CKD-EPI 2020 equation that does not use a race coefficient. Performed By: #### 2 0415-6 #### [facility] ([id number]) [address], [address] [place] [address] Glucose [Mass/Vol] 97 mg/dL Normal 65-99 [facility] Comment on above: Performed By: #### 2 0415-6 #### [facility] ([id number]) [address], [address] [place] [address] Potassium [Moles/Vol] 3.3 mmol/L Low 3.5-5.0 [facility] Comment on above: Performed By: #### 2 0415-6 #### [facility] ([id number]) [address] [place] [address] Protein [Mass/Vol] 7.2 g/dL Normal 6.0-8.0 [facility] Comment on above: Performed By: #### 2 0415-6 #### [facility] ([id number]) [address] [place] [address] Sodium [Moles/Vol] 135 mmol/L Normal 134-146 [facility] Comment on above: Performed By: #### 2 0415-6 #### [facility] ([id number]) [address] [place] [address] Urea nitrogen [Mass/Vol] 7 mg/dL Normal 5-23 [facility] Comment on above: Performed By: #### 2 0415-6 #### [facility] ([id number]) [address] [place] [address] HCG ( test) Ql (U)o n 06-14-2024 Beta HCG ( test) Ql (U) Positive Abnormal NEG [facility] Comment on above: Performed By: #### 2 0415-6 #### [facility] ([id number]) [address] [place] [address] HCG.beta subunit IA 3rd IS Q non 06-14-2024 HCG.beta subunit Qn 82 m[IU]/mL Normal [facility] Comment on above: Result Comment: NEW REFERENCE RANGE WEEKS (SINCE LMP) MIU/mL 3 WEEKS 5 - 50 4 WEEKS 5 - 426 5 WEEKS 18 - 7,340 6 WEEKS 1,080 - 56,500 7-8 WEEKS 7,650 - 229,000 9-12 WEEKS 25,700 - 288,000 13-16 WEEKS 13,300 - 254,000 17-24 WEEKS 4,060 - 165,400 25-40 WEEKS 3,640 - 117,000 MALES AND NON- FEMALES - <5 MIU/mL This test has been FDA approved for use in only. Elevated levels are not necessarily diagnostic for trophoblastic or nontrophoblastic neoplasms. Performed By: #### 2 0415-6 #### [facility] ([id number]) [address] [place] [address], [address] [place] [address] URINE CULTUREon 06-14-2024 Bacteria identified Cx Nom (U) CULTURE RESULTS >100,000 ORGANISMS/mL ENTEROBACTER CLOACAE COMPLEX 10-50,000 ORGANISMS/mL NORMAL UROGENITAL MICHELLE [ S = SUSCEPTIBLE R = RESISTANT I = INTERMEDIATE S-DO = Susceptible-dose dependent NS = Non-suscceptible NO = No Interpretation ] Organism: ENTEROBACTER CLOACAE COMPLEX Antibiotic Interpretation URSZULA Status CEFAZOLIN R >=64 F CEFEPIME S <=0.12 F CIPROFLOXACIN S <=0.25 F GENTAMICIN S <=1 F LEVOFLOXACIN S <=0.12 F NITROFURANTOIN R >=512 F PIPERACIL/TAZOBACTAM S 8 F TOBRAMYCIN S <=1 F TRIMETH/SULFAMETHOXAZO LE S <=/19 F Susceptible [facility] Comment on above: Performed By: #### 2 0415-6 #### [facility] ([id number]) [address] [facility] [place] [address] URN MACROSCOPIC NURon 2023 BILIRUBIN EULA Negative Normal NEG [facility] Comment on above: Performed By: #### N UM #### [facility] ([id number]) [address] [place] [address] [place] [address] BLOOD/HGB EULA Trace Abnormal NEG [facility] Comment on above: Performed By: #### N UM #### [facility] ([id number]) [address] [place] [address], [place] [address] GLUCOSE EULA Negative Normal NEG [facility] Comment on above: Performed By: #### N UM #### [facility] ([id number]) [address] [place] [address] [place] [address] KETONES EULA Trace Abnormal NEG [facility] Comment on above: Performed By: #### N UM #### [facility] ([id number]) [address] [place] [address] [place] [address] LEUKOCYTE ESTERASE EULA Small Abnormal NEG [facility] Comment on above: Performed By: #### N UM #### [facility] ([id number]) [address] [place] [address] [place] [address] NITRITE EULA Negative Normal NEG [facility] Comment on above: Performed By: #### N UM #### [facility] ([id number]) [address] [place] [address] [place] [address] PH EULA 6.0 Normal 5.0-8.5 [facility] Comment on above: Performed By: #### N UM #### [facility] ([id number]) [address] [place] [address] [place] [address] PROTEIN EULA Negative Normal NEG [facility] Comment on above: Performed By: #### N UM #### [facility] ([id number]) [address] [place] [address] [place] [address] SPECIFIC GRAVITY EULA 1.020 Normal 1.003-1.035 [facility] Comment on above: Performed By: #### N UM #### [facility] ([id number]) [address] [place] [address] UROBILINOGEN EULA 0.2 eu/dL Normal <1.1 [facility] Comment on above: Performed By: #### N UM #### [facility] ([id number]) [address] [place] [address] CBC AND AUTO DIFFon 04-18-20 24 ABSOLUTE BASOPHIL 0.1 X10E9/L Normal 0.0-0.2 [facility] Comment on above: Performed By: #### C BCA, CMP, 3040-3, #### [facility] ([id number]) [address] [place] [address] ABSOLUTE NEUTROPHIL 5.9 X10E9/L Normal 1.5-6.6 [facility] Comment on above: Performed By: #### C BCA, CMP, 0-3, #### [facility] ([id number]) [address] [place] [address] Basophils/100 WBC (Bld) 0.6 % Normal [facility] Comment on above: Performed By: #### C BCA, CMP, 0-3, #### [facility] ([id number]) [address] [place] [address] Eosinophils (Bld) [#/Vol] 0.6 10*3/uL High 0.0-0.4 [facility] Comment on above: Performed By: #### C BCA, CMP, 3040-3, #### [facility] ([id number]) [address] [place] [address] Eosinophils/100 WBC (Bld) 6.8 % Normal [facility] Comment on above: Performed By: #### C BCA, CMP, 3040-3, #### [facility] ([id number]) [address] [place] [address] Erythrocyte distribution width (RBC) [Ratio] 18.0 % High 11.5-15.0 [facility] Comment on above: Performed By: #### C CHIRAG CMP, 3, #### [facility] ([id number]) [address] [place] [address] Hematocrit (Bld) [Volume fraction] 36.0 % Normal 35-47 [facility] Comment on above: Performed By: #### C CHIRAG CMP, 3, #### [facility] ([id number]) [address] [place] [address] Hemoglobin (Bld) [Mass/Vol] 11.7 g/dL Normal 11.7-15.5 [facility] Comment on above: Performed By: #### Perri BEARD CMP, 3039-09, #### [facility] ([id number]) [address] [place] [address] Lymphocytes (Bld) [#/Vol] 2.2 10*3/uL Normal 1.0-3.5 [facility] Comment on above: Performed By: #### Perri BEARD, CMP, 3039-09, #### [facility] ([id number]) [address] [place] [address] 90144 Lymphocytes/100 WBC (Bld) 23.6 % Normal [facility] Comment on above: Performed By: #### Perri BEARD, CMP, 3039-09, #### [facility] ([id number]) [address] [place] [address] 96555 MCH (RBC) [Entitic mass] 27.8 pg Normal 27-34 [facility] Comment on above: Performed By: #### Perri BEARD CMP, 3039-09, #### [facility] ([id number]) [address] [place] [address] 47221 MCHC (RBC) [Mass/Vol] 32.4 g/dL Normal 32-36 [facility] Comment on above: Performed By: #### C CHIRAG, CMP, 3040-3, #### [facility] ([id number]) [address] [place] [address] 95704 MCV (RBC) [Entitic vol] 86 fL Normal 80-100 [facility] Comment on above: Performed By: #### Perri BEARD, CMP, 3, #### [facility] ([id number]) [address] [place] [address] 09653 Monocytes (Bld) [#/Vol] 0.7 10*3/uL Normal 0-0.9 [facility] Comment on above: Performed By: #### Perri BEARD, CMP, 3039-09, #### [facility] ([id number]) [address] [place] [address] 82006 Monocytes/100 WBC (Bld) 6.9 % Normal [facility] Comment on above: Performed By: #### Perri BCA, CMP, 03, #### [facility] ([id number]) [address] [place] [address] 31089 Neutrophils/100 WBC (Bld) 62.1 % Normal [facility] Comment on above: Performed By: #### Perri BEARD, CMP, 3, #### [facility] ([id number]) [address] [place] [address] 78650 Platelet mean volume (Bld) [Entitic vol] 8.3 fL Normal 7-12 [facility] Comment on above: Performed By: #### Perri BEARD, CMP, 3039-3, #### [facility] ([id number]) [address] [place] [address] 27357 Platelets (Bld) [#/Vol] 353 10*3/uL Normal 150-450 [facility] Comment on above: Performed By: #### C BCA, CMP, 3, #### [facility] ([id number]) [address] [place] [address] 10264 RBC COUNT 4.20 X10E12/L Normal 3.80-5.20 [facility] Comment on above: Performed By: #### C BCA, CMP, 3039-09, #### [facility] ([id number]) [address] [place] [address] 73795 WBC (Bld) [#/Vol] 9.5 10*3/uL Normal 4.0-11.0 [facility] Comment on above: Performed By: #### C BCA, CMP, 3039-09, #### [facility] ([id number]) [address] [place] [address] 36230 COMPREHENSIVE METABOLIC PANE Aly 04-18-2024 Albumin [Mass/Vol] 3.9 g/dL Normal 3.2-5.3 [facility] Comment on above: Performed By: #### C BCA, CMP, 3039-09, #### [facility] ([id number]) [address] [place] [address] 95737 ALP [Catalytic activity/Vol] 96 U/L Normal 39-130 [facility] Comment on above: Performed By: #### C BCA, CMP, 3039-09, #### [facility] ([id number]) [address] [place] [address] 02013 ALT [Catalytic activity/Vol] 17 U/L Normal 0-31 [facility] Comment on above: Performed By: #### C BCA, CMP, 3039-09, #### [facility] ([id number]) [address] [place] [address] 02768 Anion gap [Moles/Vol] 6 mmol/L Normal 5-15 [facility] Comment on above: Performed By: #### C BCA, CMP, 0-3, #### [facility] ([id number]) [address] [place] [address] 08250 AST [Catalytic activity/Vol] 18 U/L Normal 0-41 [facility] Comment on above: Performed By: #### C BCA, CMP, 3, #### [facility] ([id number]) [address] [place] [address] 74587 Bilirubin [Mass/Vol] 0.5 mg/dL Normal 0.3-1.2 [facility] Comment on above: Performed By: #### C BCA, CMP, 3, #### [facility] ([id number]) [address] [place] [address] 26941 Calcium [Mass/Vol] 8.9 mg/dL Normal 8.5-10.5 [facility] Comment on above: Performed By: #### C BCA, CMP, 3039-09, #### [facility] ([id number]) [address] [place] [address] 45314 Chloride [Moles/Vol] 108 mmol/L Normal 98-109 [facility] Comment on above: Performed By: #### C BCA, CMP, 3, #### [facility] ([id number]) [address] [place] [address] 76155 CO2 [Moles/Vol] 24 mmol/L Normal 22-32 [facility] Comment on above: Performed By: #### C BCA, CMP, 3, #### [facility] ([id number]) [address] [place] [address] 46794 Creatinine [Mass/Vol] 0.66 mg/dL Normal 0.40-1.00 [facility] Comment on above: Result Comment: METH OD TRACEABLE TO IDMS STANDARD Performed By: #### C HUMA BEARD, 3039-09, #### [facility] ([id number]) [address] [place] [address] 98943 eGFR (CKD-EPI) NON-RACE DEPENDENT >90 Normal >59 [facility] Comment on above: Result Comment: Reported eGFR is based on the CKD-EPI 2020 equation that does not use a race coefficient. Performed By: #### C HUMA BEARD, 3039-09, #### [facility] ([id number]) [address] [place] [address] 90853 Glucose [Mass/Vol] 103 mg/dL High 65-99 [facility] Comment on above: Performed By: #### C HUMA BEARD, 3039-09, #### [facility] ([id number]) [address] [place] [address] 15367 Potassium [Moles/Vol] 3.6 mmol/L Normal 3.5-5.0 [facility] Comment on above: Performed By: #### C HUMA BEARD, 3039-09, #### [facility] ([id number]) [address] [place] [address] 55746 Protein [Mass/Vol] 7.2 g/dL Normal 6.0-8.0 [facility] Comment on above: Performed By: #### C HUMA BEARD, 3039-09, #### [facility] ([id number]) [address] [place] [address] 82247 Sodium [Moles/Vol] 138 mmol/L Normal 134-146 [facility] Comment on above: Performed By: #### C CHIRAG CMP, 3040-3, 26152-7 #### [facility] ([id number]) [address] [place] [address] Urea nitrogen [Mass/Vol] 10 mg/dL Normal 5-23 [facility] Comment on above: Performed By: #### C BCA, CMP, 3040-3, 68339-4 #### [facility] ([id number]) [address] [place] [address] CT ABDOMEN AND PELVIS WO CON Ton 04-18-2024 CT ABDOMEN AND PELVIS WO CONT CT ABDOMEN AND PELVIS WO CONT CT ABDOMEN AND PELVIS WO CONT CLINICAL HISTORY: Abdominal pain radiating to the flank COMPARISON: 08/03/2022 TECHNIQUE: * CT of the abdomen and pelvis was performed without intravenous contrast. Coronal and sagittal reformatted images were generated and reviewed. Automated exposure control was utilized. * All CT scans at this facility use dose modulation, iterative reconstruction, and/or weight based dosing when appropriate to reduce radiation dose to as low as reasonably achievable. FINDINGS: Evaluation of the solid viscera and vascular structures is compromised without the use of IV contrast. Visualized portions of lung parenchyma appear unremarkable. No pericardial or pleural effusions. No intra-abdominal free air or free fluid. The liver, gallbladder, spleen, pancreas, and adrenal glands appear unremarkable. No nephrolithiasis, hydronephrosis, or suspicious renal lesion. No pelvic free fluid. The uterus is unremarkable. Small and large bowel are nondilated. Appendectomy. No abdominal or pelvic lymphadenopathy. Nonaneurysmal abdominal aorta. No acute osseous abnormality. IMPRESSION: * No acute abdominopelvic process. No renal/ureteral calculi or evidence of obstructive uropathy. Approved by Resident: Chin Early MD on 04/18/2024 12:30 AM IMike MD have personally reviewed the image(s) and agree with and/or edited the report Finalized by Mike Elias MD on 04/18/2024 12:53 AM Normal [facility] HCG ( test) Ql (U)o n 04-18-2024 Beta HCG ( test) Ql (U) Negative Normal NEG [facility] Comment on above: Performed By: #### 2 106-3 #### [facility] ([id number]) [address] [place] [address] 85112 HCG.beta subunit IA 3rd IS Q non 04-18-2024 SERUM B HCG,3RD I.S. <[address] [facility] Comment on above: Result Comment: NEW REFERENCE RANGE WEEKS (SINCE LMP) MIU/mL 3 WEEKS 5 - 50 4 WEEKS 5 - 426 5 WEEKS 18 - 7,340 6 WEEKS 1,080 - 56,500 7-8 WEEKS 7,650 - 229,000 9-12 WEEKS 25,700 - 288,000 13-16 WEEKS 13,300 - 254,000 17-24 WEEKS 4,060 - 165,400 25-40 WEEKS 3,640 - 117,000 MALES AND NON- FEMALES - <5 MIU/mL This test has been FDA approved for use in only. Elevated levels are not necessarily diagnostic for trophoblastic or nontrophoblastic neoplasms. Performed By: #### C CHIRAG CMP, 3039-09, #### [facility] ([id number]) [address] [place] [address] 96389 LIPASEon 04-18-2024 Lipase [Catalytic activity/Vol] 29 U/L Normal 17-40 [facility] Comment on above: Performed By: #### C CHIRAG, CMP, 0, #### [facility] ([id number]) [address] [place] [address] 42289 URN MACROSCOPIC NURon 2023 BILIRUBIN EULA Negative Normal NEG [facility] Comment on above: Performed By: #### N UM #### [facility] ([id number]) [address] [place] [address] 78935 BLOOD/HGB EULA MODERATE Abnormal NEG [facility] Comment on above: Performed By: #### N UM #### [facility] ([id number]) [address] [place] [address] [place] [address] GLUCOSE EULA Negative Normal NEG [facility] Comment on above: Performed By: #### N UM #### [facility] ([id number]) [address] [place] [address] [place] [address] KETONES EULA Negative Normal NEG [facility] Comment on above: Performed By: #### N UM #### [facility] ([id number]) [address] [place] [address] 07320 LEUKOCYTE ESTERASE EULA Negative Normal NEG [facility] Comment on above: Performed By: #### N UM #### [facility] ([id number]) [address] [place] [address] 84703 NITRITE EULA Negative Normal NEG [facility] Comment on above: Performed By: #### N UM #### [facility] ([id number]) [address] [place] [address] 78382 PH EULA 7.0 Normal 5.0-8.5 [facility] Comment on above: Performed By: #### N UM #### [facility] ([id number]) [address] [place] [address] 00837 PROTEIN EULA Negative Normal NEG [facility] Comment on above: Performed By: #### N UM #### [facility] ([id number]) [address] [place] [address] [place] [address] SPECIFIC GRAVITY EULA 1.025 Normal 1.003-1.035 [facility] Comment on above: Performed By: #### N UM #### [facility] ([id number]) [address] [place] [address] [place] [address] UROBILINOGEN EULA 0.2 eu/dL Normal <1.1 [facility] Comment on above: Performed By: #### N #### [facility] ([id number]) [address] [place] [address], [place] [address] HCG.beta subunit IA 3rd IS Q non 04-17-2024 HCG.beta subunit Qn mIU/mL [facility] Comment on above: NEW REFERENCE RANGE WEEKS (SINCE LMP) MIU/mL 3 WEEKS 5 - 50 4 WEEKS 5 - 426 5 WEEKS 18 - 7,340 6 WEEKS 1,080 - 56,500 7-8 WEEKS 7,650 - 229,000 9-12 WEEKS 25,700 - 288,000 13-16 WEEKS 13,300 - 254,000 17-24 WEEKS 4,060 - 165,400 25-40 WEEKS 3,640 - 117,000 MALES AND NON- FEMALES - <5 MIU/mL This test has been FDA approved for use in only. Elevated levels are not necessarily diagnostic for trophoblastic or nontrophoblastic neoplasms. [facility] SERUM B HCG,3RD I.S. <[address] [facility] Comment on above: Result Comment: NEW REFERENCE RANGE WEEKS (SINCE LMP) MIU/mL 3 WEEKS 5 - 50 4 WEEKS 5 - 426 5 WEEKS 18 - 7,340 6 WEEKS 1,080 - 56,500 7-8 WEEKS 7,650 - 229,000 9-12 WEEKS 25,700 - 288,000 13-16 WEEKS 13,300 - 254,000 17-24 WEEKS 4,060 - 165,400 25-40 WEEKS 3,640 - 117,000 MALES AND NON- FEMALES - <5 MIU/mL This test has been FDA approved for use in only. Elevated levels are not necessarily diagnostic for trophoblastic or nontrophoblastic neoplasms. Performed By: #### 2 0415-6 #### [facility] ([id number]) [address], [address] [place] [address] Cholesterol [Mass/volume] in Serum or PlasmaOrdered By: Gabe Regan on 03-22-2024 Cholesterol [Mass/Vol] 126 mg/dL Low 140-200 [facility] Comment on above: Chol less than 200 m g/dl low riskChol 201-239 mg/dl borderline riskChol 240 mg/dl and greater high risk Order Comment: FRANCO Judd Result Comment: Chol less than 200 mg/dl low risk Chol 201-239 mg/dl borderline risk Chol 240 mg/dl and greater high risk Performed By: #### L IPID, [id number], TSH3 wRFLX #### [facility] [address] [id number] [facility] Cholesterol in LDL Calc [Mas s/Vol]Ordered By: Gabe Regan on 03-22-2024 Cholesterol in LDL [Mass/Vol] 76 mg/dL 0-100 [facility] Comment on above: LDL ATP III CLASSIFI CATIONLDL less than 100 mg/dL OptimalLDL 100-129 mg/dL Near or above optimalLDL 130-159 mg/dL Borderline highLDL 160-189 mg/dL HighLDL greater than 189 mg/dL Very high Cholesterol in VLDL Calc [Ma ss/Vol]Ordered By: Gabe Regan on 03-22-2024 Cholesterol in VLDL [Mass/Vol] 10 mg/dL [facility] ECG 12 lead ECGon 03-22-2024 ECG 12 lead ECG [facility] [place] [address] [id number] Electrocardiograph Report Signed Patient: Haven Herrera MR#: [id number] 6 : 2000 Acct:[id number] Age/Sex: 23 / F ADM Date: 03/21/24 Loc: Room: [address] [place] [address] Type: ADM IN Attending Dr: Gabe Regan MD Ordering Provider: Gabe Regan MD Date of Service: 03/22/24 ECG/ECG 12 lead ECG: use of antipsychotics Copies to: Test Reason : Blood Pressure : */* mmHG Vent. Rate : 63 BPM Atrial Rate : 63 BPM P-R Int : 182 ms QRS Dur : 70 ms QT Int : 404 ms P-R-T Axes : 43 52 45 degrees QTcB Int : 413 ms Normal sinus rhythm with sinus arrhythmia Normal ECG No previous ECGs available Confirmed by JUAN J FERGUSON MD ([id number]) on 03/24/2024 12:59:24 AM Referred By: Electronically Signed By: JUAN J FERGUSON MD Transcribed By: MUS Signed By Juan J Ferguson MD 0 03/24/24 0059 Normal [facility] Lipid Panelon 03-22-2024 LDL Cholesterol,Calculated 76 mg/dL Normal 0-100 [facility] Comment on above: Order Comment: FRANCO Judd Result Comment: LDL ATP III CLASSIFICATION LDL less than 100 mg/dL Optimal LDL 100-129 mg/dL Near or above optimal LDL 130-159 mg/dL Borderline high LDL 160-189 mg/dL High LDL greater than 189 mg/dL Very high Performed By: #### L IPID, [id number], TSH3 wRFLX #### [facility] [address] [place] [address] Triglyceride w/Reflex 51 mg/dL Normal 0-149 [facility] Comment on above: Order Comment: FRANCO Judd Result Comment: TRIG ATP III CLASSIFICATION TRIG less than 150 mg/dL Normal TRIG 150-199 mg/dL Borderline high TRIG 200-500 mg/dL High TRIG greater than 500 mg/dL Very high Standard traceable to the Center for Disease Conrtrol and Prevention (CDC) test method. Performed By: #### L IPID, [id number], TSH3 wRFLX #### [facility] [address] VLDL CHOLESTEROL 10 mg/dL Normal [facility] Comment on above: Order Comment: FRANCO Judd Performed By: #### L IPID, [id number], TSH3 wRFLX #### [facility] [address] Serum or plasma high density lipoprotein (HDL) cholesterol measurementOrdered By: Gabe Regan on 03-22-2024 Cholesterol in HDL [Mass/Vol] 40 mg/dL Normal 23-92 [facility] Comment on above: HDL CHOL ATP-III CLA SSIFICATION Cardiovascular RiskHDL > or equal to 60 mg/dL LOWHDL < 40 mg/dL HIGH Order Comment: FRANCO GARCIA Y Result Comment: HDL CHOL ATP-III CLASSIFICATION Cardiovascular Risk HDL > or equal to 60 mg/dL LOW HDL < 40 mg/dL HIGH Performed By: #### L IPID, [id number], TSH3 wRFLX #### [facility] [address] Serum or plasma total choles terol/high density lipoprotein (HDL) cholesterol mass ratOrdered By: Gabe Regan on 03-22-2024 Cholesterol.total/Chol esterol in HDL [Mass ratio] 3.2 {ratio} Normal <5.0 [facility] Comment on above: Order Comment: FRANCO GARCIA Y Performed By: #### L IPID, [id number], TSH3 wRFLX #### [facility] [address] [place] [address] Thyroid Stim Hormone w/Rflxo n 03-22-2024 Thyroid Stim Hormone w/Rflx 1.67 u[iU]/mL Normal 0.45-5.33 [facility] Comment on above: Order Comment: FASTI NG Y Performed By: #### L IPID, [id number], TSH3 wRFLX #### [facility] [address] [place] [address] Thyrotropin [Units/volume] i n Serum or PlasmaOrdered By: Gabe Regan on 03-22-2024 TSH Qn 1.67 m[IU]/L 0.45-5.33 [facility] Triglyceride [Mass/volume] i n Serum or PlasmaOrdered By: Gabe Regan on 03-22-2024 Triglyceride [Mass/Vol] 51 mg/dL 0-149 [facility] Comment on above: TRIG ATP III CLASSIF ICATIONTRIG less than 150 mg/dL NormalTRIG 150-199 mg/dL Borderline highTRIG 200-500 mg/dL High TRIG greater than 500 mg/dL Very highStandard traceable to the Center for Disease Conrtrol and Prevention (CDC) test method. Vitamin D 25 Hydroxy Totalon 03-22-2024 Vitamin D 25 Hydroxy Total 21.8 ng/mL Low 30-100 [facility] Comment on above: Order Comment: FASTI NG Y Result Comment: KIAH MIN D STATUS 25([place])VITAMIN D RANGE (ng/mL) Deficient <20 Insufficient 20 to <30 Sufficient 30 to 100 Reference: Candy Kaplan, Breanna BHARDWAJ, et al. Evaluation,treatment, and prevention of vitamin D deficiency; an Endocrine Society clinical practice guideline. JCEM. 2010; 96(7):1911-. PERFORMED BY: [facility] [address] [place] [address] PATHOLOGIST [employer]ER DANUTA HURTADO M.D. Performed By: #### L IPID, [id number], TSH3 wRFLX #### [address] Vitamin D+Metabolites [Mass/ volume] in Serum or PlasmaOrdered By: Gabe Regan on 03-22-2024 Vitamin D+Metabolites [Mass/Vol] 21.8 ng/mL Low 30-100 [facility] Comment on above: VITAMIN D STATUS 25( [place])VITAMIN D RANGE (ng/mL) Deficient <20 Insufficient 20 to <30Sufficient 30 to 100Reference: Candy Kaplan, Breanna BHARDWAJ, et al. Evaluation,treatment, and prevention of vitamin D deficiency; an Endocrine Society clinical practice guideline. JCEM. 2010; 96(7):1911-. URINE CULTUREon 03-10-2024 Bacteria identified Cx Nom (U) FINAL Normal (. - .) [facility] Comment on above: Order Comment: [facility]: DR MAX - OFFICE [id number] Result Comment: DENISHA N CATCH MID-STREAM URINE GROWTH < 10,000 CFU/ML AT 48 HRS Performed By: #### C -UR #### [facility] [address] [place], [address] URN MACROSCOPIC NURon 2023 BILIRUBIN EULA Negative Normal NEG [facility] Comment on above: Performed By: #### N UM #### [facility] ([id number]) [address] [place] [address] [place] [address] BLOOD/HGB EULA Trace Abnormal NEG [facility] Comment on above: Performed By: #### N UM #### [facility] ([id number]) [address] [place] [address] 40920 GLUCOSE EULA Negative Normal NEG [facility] Comment on above: Performed By: #### N UM #### [facility] ([id number]) [address] [place] [address] [place] [address] KETONES EULA Negative Normal NEG [facility] Comment on above: Performed By: #### N UM #### [facility] ([id number]) [address] [place] [address] 57580 LEUKOCYTE ESTERASE EULA MODERATE Abnormal NEG [facility] Comment on above: Performed By: #### N UM #### [facility] ([id number]) [address] [place] [address] 74086 NITRITE EULA Negative Normal NEG [facility] Comment on above: Performed By: #### N UM #### [facility] ([id number]) [address] [place] [address] [place] [address] PH EULA 6.0 Normal 5.0-8.5 [facility] Comment on above: Performed By: #### N UM #### [facility] ([id number]) [address] [place] [address] [place] [address] PROTEIN EULA Negative Normal NEG [facility] Comment on above: Performed By: #### N UM #### [facility] ([id number]) [address] [place] [address] [place] [address] SPECIFIC GRAVITY EULA >=1.030 Normal 1.003-1.035 [facility] Comment on above: Performed By: #### N UM #### [facility] ([id number]) [address] [place] [address] [place] [address] UROBILINOGEN EULA 0.2 eu/dL Normal <1.1 [facility] Comment on above: Performed By: #### N UM #### [facility] ([id number]) [address] [place] [address], [place] [address] CHLAMYDIA/GC BY PCRon 2023 CHLAMYDIA/GC BY PCR SPECIMEN SOURCE SWAB CHLAMYDIA DNA(PCR) Negative (qualifier value) Chlamydia trachomatis not detected by nucleic acid amplification. This does not exclude the possibility of infection because results are dependent on adequate specimen collection. GONORRHOEAE DNA(PCR) Negative (qualifier value) Neisseria gonorrhoeae not detected by nucleic acid amplification. This does not exclude the possibility of infection because results are dependent on adequate specimen collection. Normal [facility] Comment on above: Performed By: #### C GS #### [facility] ([id number]) [address] [place] [address] POCT , urineon 01-29 Beta HCG ( test) Ql (U) Negative [facility] Supervisor Check Completed and Passed Yes [facility] Interpretation and review of laboratory results Normal [facility] URINALYSISon 02-15-2024 Bilirubin Ql (U) Negative Normal NEG [facility] Comment on above: Performed By: #### U A #### [facility] ([id number]) [address], [address] [place] [address] BLOOD/HGB Trace Abnormal NEG [facility] Comment on above: Performed By: #### U A #### [facility] ([id number]) [address], [address] [place] [address] Color (U) YELLOW Normal YELLOW [facility] Comment on above: Performed By: #### U A #### [facility] ([id number]) [address], [address] [place] [address] Glucose Ql (U) Negative Normal NEG [facility] Comment on above: Performed By: #### U A #### [facility] ([id number]) [address], [address] [place] [address] Ketones Ql (U) Negative Normal NEG [facility] Comment on above: Performed By: #### U A #### [facility] ([id number]) [address], [address] [place] [address] Leukocyte esterase Test strip Ql (U) Large Abnormal NEG [facility] Comment on above: Performed By: #### U A #### [facility] ([id number]) [address], [address] [place] [address] MUCOUS PRESENT Abnormal NONE [facility] Comment on above: Performed By: #### U A #### [facility] ([id number]) [address], [address] [place] [address] Nitrite Ql (U) Negative Normal NEG [facility] Comment on above: Performed By: #### U A #### [facility] ([id number]) [address] [place] [address] pH (U) 6.5 [pH] Normal 5.0-8.5 [facility] Comment on above: Performed By: #### U A #### [facility] ([id number]) [address] [place] [address] Protein Ql (U) Trace Abnormal NEG [facility] Comment on above: Performed By: #### U A #### [facility] ([id number]) [address] [place] [address] R.B.CELLS 2 /hpf Normal 0-5 [facility] Comment on above: Performed By: #### U A #### [facility] ([id number]) [address], [address] [place] [address] Specific gravity (U) [Rel density] 1.023 Normal 1.003-1.035 [facility] Comment on above: Performed By: #### U A #### [facility] ([id number]) [address] [place] [address], [address] [address] SQUAMOUS EPITHELIUM 5 /hpf Normal 0-5 [facility] [facility] Comment on above: Performed By: #### U A #### [facility] ([id number]) [address] [place] [address], [address] [address] TURBIDITY CLEAR Normal CLEAR [facility] Comment on above: Performed By: #### U A #### [facility] ([id number]) [address] [place] [address], [address] [address] Urobilinogen (U) [Mass/Vol] mg/dL Normal <1.1 [facility] Comment on above: Performed By: #### U A #### [facility] ([id number]) [address] [place] [id number] W.B.CELLS 11 /hpf High 0-5 [facility] Comment on above: Performed By: #### U A #### [facility] ([id number]) [address] [place] [id number] URINE CULTUREon 02-15-2024 Bacteria identified Cx Nom (U) CULTURE RESULTS 50-100,000 ORGANISMS/ML NORMAL UROGENITAL MICHELLE Normal [facility] VAGINITIS PANEL PCRon 2023 VAGINITIS PANEL PCR BACT. VAGINOSIS DNA Detected (qualifier value) Qualitative results are reported based on detection and quantitation of targeted organism markers which include: Lactobacillus spp. (L. crispatus and L. jensenii), Gardnerella vaginalis, Atopobium vaginae, Bacterial Vaginosis Associated Bacteria-2 (BVAB-2) and Megasphaera-1 CHACORTA SPECIES DNA Detected (qualifier value) Chacorta species result based on detection of one or more of the following species: C. albicans, C. tropicalis, C. parapsilosis or C. dubliniensis CHACORTA KRUSEI DNA Not detected (qualifier value) No Chacorta krusei detected CHACORTA GLABRATA DNA Not detected (qualifier value) No Chacorta glabrata detected TRICHOMONAS VAG DNA Not detected (qualifier value) No Trichomonas vaginalis detected NOTE BD MAX Vaginal Panel has not been evaluated for patients under 18 years old. Results for these patients should be reviewed and assessed in accordance with clinical presentation to determine patient diagnosis. [facility] Comment on above: Performed By: #### V PPCR #### [facility] ([id number]) [address] [place] [address], [address] [place] [address] CHLAMYDIA/GC BY PCRon 2023 CHLAMYDIA/GC BY PCR SPECIMEN SOURCE CERVIX CHLAMYDIA DNA(PCR) Negative (qualifier value) Chlamydia trachomatis not detected by nucleic acid amplification. This does not exclude the possibility of infection because results are dependent on adequate specimen collection. GONORRHOEAE DNA(PCR) Negative (qualifier value) Neisseria gonorrhoeae not detected by nucleic acid amplification. This does not exclude the possibility of infection because results are dependent on adequate specimen collection. [facility] Comment on above: Performed By: #### C GS #### [facility] ([id number]) [address] [place] [address], [address] [place] [address] VAGINITIS PANEL PCRon 2023 VAGINITIS PANEL PCR BACT. VAGINOSIS DNA Not detected (qualifier value) Qualitative results are reported based on detection and quantitation of targeted organism markers which include: Lactobacillus spp. (L. crispatus and L. jensenii), Gardnerella vaginalis, Atopobium vaginae, Bacterial Vaginosis Associated Bacteria-2 (BVAB-2) and Megasphaera-1 CHACORTA SPECIES DNA Not detected (qualifier value) Chacorta species not detected include: C. albicans, C. tropicalis, C. parapsilosis or C. dubliniensis CHACORTA KRUSEI DNA Not detected (qualifier value) No Chacorta krusei detected CHACORTA GLABRATA DNA Not detected (qualifier value) No Chacorta glabrata detected TRICHOMONAS VAG DNA Not detected (qualifier value) No Trichomonas vaginalis detected NOTE BD MAX Vaginal Panel has not been evaluated for patients under 18 years old. Results for these patients should be reviewed and assessed in accordance with clinical presentation to determine patient diagnosis. Normal [facility] Comment on above: Performed By: #### V PPCR #### [facility] ([id number]) [address], [address] [place] [address] POCT EKGon 11-14-2023 [facility] US OB 1ST Trimesteron 2021 US OB 1ST Trimester FINDINGS: A single intrauterine gestational sac, 7 mm suggests less than a 5 week gestional age. Normal double decidual reaction. Yolk sac visualized within the amniotic sac, 2mm diameter. Closed cervix. No pelvic fluid. Unremarkable ovaries, left ovarian complex presumed hemorrhagic corpus luteal 1.0 x 1.5 cm cyst. IMPRESSION: 1. Single intrauterine gestational sac with yolk sac consistent with a viable intrauterine too early for pole detection. This can serve as a baseline for follow up examinations. Report reported and signed by Eugenio Aguirre on 05/26/2022 1513 Normal [facility] Elevator Examiner And Adjuster PAP ACOG PANEL 2: 21 to 29on 08-03-2021 . . Normal [facility] Comment on above: Performed By: #### [id number] #### [facility] [address] [address] [address] Matt Terrazas Age Gdln ACOG Testing - Normal [facility] Comment on above: Performed By: #### [id number] #### [facility] [address] [address] [address] Matt Terrazas DIAGNOSIS: Comment Normal [facility] Comment on above: Result Comment: NEGA TIVE FOR INTRAEPITHELIAL LESION OR MALIGNANCY. Performed By: #### [id number] #### [facility] [address] [address] [address] Matt Terrazas Methodology: Comment [facility] Comment on above: Result Comment: This liquid based ThinPrep(R) pap test was screened with the use of an image guided system. Performed By: #### 4 [id number] #### [facility] [address] [address] [address] Matt Terrazas Note: Comment Normal [facility] Comment on above: Result Comment: The Pap smear is a screening test designed to aid in the detection of premalignant and malignant conditions of the uterine cervix. It is not a diagnostic procedure and should not be used as the sole means of detecting cervical cancer. Both false-positive and false-negative reports do occur. . Performed By: #### [id number] #### [facility] [address] [place] [address] Dr. Matt Terrazas Performed by: Comment Normal [facility] Comment on above: Result Comment: Pamela Shafer, Grocery Associate Performed By: #### 4 [id number] #### [facility] [address] [place] [address] Dr. Matt Terrazas Reflex Criteria: Comment Normal [facility] Comment on above: Result Comment: The HPV DNA reflex criteria were not met with this specimen result therefore, no HPV testing was performed. . Performed By: #### [id number] #### [facility] [address] [place] [address] Dr. Matt Terrazas Specimen adequacy: Comment Normal [facility] Comment on above: Result Comment: Sati sfactory for evaluation. Endocervical and/or squamous metaplastic cells (endocervical component) are present. Performed By: #### 4 [id number] #### [facility] [address] [place] [address] Dr. Matt Terrazas CHLAMYDIA/GONOCOCCUS JAMAL (SW AB/URINE/PAPon 07-31-2021 Chlamydia trachomatis, JAMAL Negative Normal Negative [facility] Comment on above: Performed By: #### C T/NGNA #### [facility] [address] [place] [address] Dr. Matt Terrazas Neisseria gonorrhoeae, JAMAL Negative Normal Negative [facility] Comment on above: Performed By: #### C T/NGNA #### [facility] [address] [place] [address] Dr. Matt Terrazas VAGINITIS/VAGINOSIS DNA PROB Karel 07-31-2021 Chacorta species Negative Normal Negative [facility] Comment on above: Performed By: #### V AGINT #### [facility] [address] [place] [address] Dr. Matt Terrazas Gardnerella vaginalis Negative Normal Negative [facility] Comment on above: Performed By: #### V AGINT #### [facility] [address] [place] [address] Dr. Matt Terrazas Trichomonas vaginalis Positive Abnormal Negative [facility] Comment on above: Performed By: #### V AGINT #### [facility] [id number] Matt Terrazas Vital Signs Date Time Vital Sign Value Performing Clinician Faci lity 08-30-2024 10:36-0500 Body mass index (BMI) [Ratio] 25.3 kg/m2 Krys Krotzer OFFICE EMPLOYEE-[employer]OCATIONAL [employer]ODY INSTRUCTOR Work Phone: [facility] 08-30-2024 10:36-0500 Body weight 64.77 kg Krys Krotzer OFFICE EMPLOYEE-VOCATIONAL AUTO BODY INSTRUCTOR Work Phone: [facility] 08-30-2024 10:36-0500 Diastolic blood pressure 64 mm[Hg] Krys Krotzer OFFICE EMPLOYEE-VOCATIONAL AUTO BODY INSTRUCTOR Work Phone: [facility] 08-30-2024 10:36-0500 Systolic blood pressure 108 mm[Hg] Krys Krotzer OFFICE EMPLOYEE-VOCATIONAL AUTO BODY INSTRUCTOR Work Phone: [facility] 08-02-2024 09:20-0500 Body mass index (BMI) [Ratio] 25.15 kg/m2 Sondra Sholey OFFICE EMPLOYEE-CNM Work Phone: [facility] 08-02-2024 09:20-0500 Body weight 64.41 kg Sondra Sholey OFFICE EMPLOYEE-CNM Work Phone: [facility] 08-02-2024 09:20-0500 Diastolic blood pressure 62 mm[Hg] Sondra Sholey OFFICE EMPLOYEE-CNM Work Phone: [facility] 08-02-2024 09:20-0500 Systolic blood pressure 98 mm[Hg] Sondra Hdz OFFICE EMPLOYEE-CNM Work Phone: [facility] 03-24-2024 12:15-0400 Body temperature 97.6 [degF] MD Anuja Max Work Phone: [facility] 03-24-2024 12:15-0400 SaO2% (BldA) [Mass fraction] 98 % MD Anuja Max Work Phone: [facility] 03-24-2024 07:30-0400 Diastolic blood pressure 59 mm[Hg] MD Anuja Max Work Phone: [facility] 03-24-2024 07:30-0400 Heart rate 72 /min MD Anuja Max Work Phone: [facility] 03-24-2024 07:30-0400 Respiratory rate 18 /min MD Anuja Max Work Phone: [facility] 03-24-2024 07:30-0400 Systolic blood pressure 109 mm[Hg] MD Anuja Max Work Phone: [facility] 03-22-2024 14:40-0400 Body height 160.02 cm MD Anuja Max Work Phone: [facility] 03-21-2024 23:00-0400 Body weight 71.66 kg MD Anuja Max Work Phone: [facility] 02-15-2024 15:09-0400 Body height 160 cm [facility] 02-15-2024 15:09-0400 Body mass index (BMI) [Ratio] 27.99 kg/m2 [facility] 02-15-2024 15:09-0400 Body weight 71.67 kg ws [facility] 02-15-2024 15:09-0400 Diastolic blood pressure 80 mm[Hg] [facility] 02-15-2024 15:09-0400 Systolic blood pressure 110 mm[Hg] [facility] 11-28-2023 10:17-0400 Body height 160 cm Concha Duque MD Work Phone: [facility] 11-28-2023 10:17-0400 Body mass index (BMI) [Ratio] 27.07 kg/m2 Concha Duque MD Work Phone: [facility] 11-28-2023 10:17-0400 Body weight 69.31 kg Concha Duque MD Work Phone: [facility] 11-28-2023 10:17-0400 Diastolic blood pressure 56 mm[Hg] Concha Duque MD Work Phone: [facility] 11-28-2023 10:17-0400 Systolic blood pressure 102 mm[Hg] Concha Duque MD Work Phone: [facility] 11-14-2023 12:44-0400 Body height 160 cm Dejah Davies MD Work Phone: [facility] 11-14-2023 12:44-0400 Body mass index (BMI) [Ratio] 27.1 kg/m2 Dejah Davies MD Work Phone: [facility] 11-14-2023 12:44-0400 Body weight 69.4 kg Dejah Davies MD Work Phone: [facility] 11-14-2023 12:44-0400 Diastolic blood pressure 60 mm[Hg] Dejah Davies MD Work Phone: [facility] 11-14-2023 12:44-0400 Heart rate 104 /min Dejah Davies MD Work Phone: [facility] 11-14-2023 12:44-0400 Systolic blood pressure 96 mm[Hg] Dejah Davies MD Work Phone: [facility] 08-26-2023 12:57-0500 Body height 160 cm Osei Mercado MD Work Phone: [facility] 08-26-2023 12:57-0500 Body mass index (BMI) [Ratio] 25.33 kg/m2 Osei Mercado MD Work Phone: [facility] 08-26-2023 12:57-0500 Body weight 64.86 kg Osei Mercado MD [facility] Phone: [facility] 08-26-2023 12:57-0500 Diastolic blood pressure 60 mm[Hg] Osei Mercado MD Work Phone: [facility] 08-26-2023 12:57-0500 Heart rate 80 /min Osei Mercado MD Work Phone: [facility] 08-26-2023 12:57-0500 SaO2% (BldA) [Mass fraction] 97 % Osei Mercado MD Work Phone: [facility] 08-26-2023 12:57-0500 Systolic blood pressure 110 mm[Hg] Osei Mercado MD Work Phone: [facility] Encounters Encounter Date Encounter Type Care Provider Facility Start: 09-07-2024 End: 09-07-2024 Telephone encounter Breanna Bhatti [facility] Start: 08-31-2024 End: 08-31-2024 Documentation procedure Paradise Yun OFFICE EMPLOYEE-CNM Work Phone: [facility] Start: 08-31-2024 End: 08-31-2024 Telephone encounter Sarah Pretty [facility] Call Vitaliy r Comment on above: Constipation Start: 08-30-2024 End: 08-30-2024 Subsequent care visit Krys Palencia OFFICE EMPLOYEE-VOCATIONAL [employer] BODY INSTRUCTOR Work Phone: [facility] Comment on above: GA: 14w5d Start: 08-30-2024 End: 08-30-2024 ambulatory KRYS PALENCIA [facility] Start: 08-16-2024 End: 08-16-2024 Telephone encounter Krys Palencia OFFICE EMPLOYEE-VOCATIONAL AUT[employer] BODY INSTRUCTOR Work Phone: [facility] Start: 08-09-2024 End: 08-09-2024 Patient encounter procedure Krys Palencia OFFICE EMPLOYEE-VOCATIONAL AUT[employer] BODY INSTRUCTOR Work Phone: [facility] Comment on above: Genetic screening (P rimary Dx) Start: 08-09-2024 End: 08-09-2024 ambulatory [facility] Carmen GOODEISABELA [facility] Start: 08-06-2024 End: 08-06-2024 Orders Only Sondra Carmen Des OFFICE EMPLOYEE-CNM Work Phone: [facility] Comment on above: Nausea and vomiting in prior to 22 weeks gestation (Primary Dx) Start: 08-05-2024 End: 08-05-2024 Refill Krys Palencia OFFICE EMPLOYEE-VOCATIONAL AUTO BODY INSTRUCTOR Work Phone: [facility] Comment on above: Nausea/vomiting in p regnancy Start: 08-02-2024 End: 08-02-2024 ambulatory [facility] Start: 08-02-2024 End: 08-02-2024 [facility]-CNM Work Phone: [facility] Comment on above: GA: 10w5d Start: 08-02-2024 End: 08-02-2024 ambulatory [facility] Start: 07-30-2024 End: 07-30-2024 Chart abstracting Scanning Provider External [facility] Start: 07-26-2024 End: 07-27-2024 Emergency department patient visit [facility] MuniraJane [facility] Start: 07-24-2024 End: 07-24-2024 Telephone encounter Chandrika [facility] Start: 07-17-2024 End: 07-17-2024 Emergency department patient visit [facility] Munira [facility] Start: 07-12-2024 End: 07-12-2024 Orders Only Krys Palencia OFFICE EMPLOYEE-VOCATIONAL [employer] BODY INSTRUCTOR Work Phone: [facility] Comment on above: Nausea/vomiting in p regnancy (Primary Dx) Start: 07-04-2024 End: 07-04-2024 Telephone encounter Deblizeth Bautista [facility] Call Vitaliy r Comment on above: Fever; Nausea Start: 07-03-2024 End: 07-03-2024 Initial care visit Krys Palencia OFFICE EMPLOYEE-VOCATIONAL AUT[employer] BODY INSTRUCTOR Work Phone: [facility] Comment on above: First trimester preg edie (Primary Dx) Start: 07-03-2024 End: 07-03-2024 ambulatory KRYS PALENCIA [facility] Start: 06-14-2024 End: 06-14-2024 Emergency department patient visit [facility] Munira [facility] Start: 06-13-2024 End: 06-13-2024 [facility] Start: 04-18-2024 End: 04-19-2024 Emergency department patient visit DONNIE PALMER [facility] Start: 04-17-2024 End: 04-17-2024 ambulatory KRYS PATRICIO [facility] Start: 04-17-2024 End: 04-17-2024 Telephone encounter Chandrika Ferris RN [facility] Comment on above: Missed period (Prima ry Dx) Start: 03-22-2024 Non-patient / Non-visit MD Petra Max Work Phone: [facility] Work Phone: Start: 03-21-2024 End: 03-24-2024 ambulatory Gabe Jass Facility:[facility] Start: 03-21-2024 End: 03-24-2024 Evaluation and management of inpatient MD Anuja Max Work Phone: [address] Work Phone: Start: 03-21-2024 ambulatory Eleazar Browning acility:[facility] Start: 03-05-2024 End: 03-05-2024 Emergency department patient visit [facility] Mun[facility] Start: 02-16-2024 End: 02-16-2024 Orders Only Krys M Khurram OFFICE EMPLOYEE-VOCATIONAL [employer] B[employer] INSTRUCTOR Work Phone: [facility] Comment on above: BV (bacterial vagino sis) (Primary Dx); Vaginal yeast infection Start: 02-15-2024 End: 02-15-2024 ambulatory KRYS PALENCIA [facility] Start: 02-15-2024 End: 02-15-2024 Office outpatient visit 15 minutes Pf[facility] [employer] [facility] Comment on above: Vaginal itching (Alejandra viviane Dx); Vaginal burning; Screening examination for STD (sexually transmitted disease); Dysuria Start: 02-15-2024 End: 02-15-2024 ambulatory [facility] Start: 12-21-2023 End: 12-21-2023 Emergency department patient visit [facility] Start: 11-28-2023 End: 11-28-2023 ambulatory [facility] Start: 11-28-2023 End: 11-28-2023 Initial preventive medicine new pt age 18-39yrs Concha Duque MD [facility] Comment on above: Screening for STD (s exually transmitted disease) (Primary Dx); Encounter for gynecological examination without abnormal finding Start: 11-28-2023 End: 11-28-2023 Patient encounter status Concha Duque MD Work Phone: [facility] Work Phone: Start: 11-28-2023 End: 11-28-2023 ambulatory [facility] Start: 11-14-2023 End: 11-14-2023 ambulatory DEJAH DAVIES [facility] Start: 11-14-2023 End: 11-14-2023 Office outpatient visit 15 minutes Dejah Davies MD Work Phone: [facility] Comment on above: Dizziness (Primary D x); Light headedness Start: 11-11-2023 End: 11-11-2023 Telephone encounter Caro Frazier CMA [facility] Start: 10-04-2023 End: 10-04-2023 ambulatory [facility] Mun[facility] Start: 10-04-2023 End: 10-04-2023 ambulatory [facility] Start: 08-26-2023 End: 08-26-2023 Office outpatient new 60 minutes Osei Mercado MD Work Phone: [facility] Comment on above: Dizziness (Primary D x); Light headedness Start: 08-26-2023 End: 08-26-2023 ambulatory [facility] Munira [facility] Start: 08-25-2023 Telephone encounter Caro Frazier CMA [facility] Start: 07-28-2021 End: 07-28-[address] ISAURA CROWLEY Facility: Procedures Date Procedure Procedure Detail Performing Clinician Start: 02-15-2024 Urine test visual color cmprsn meths Krys M Khurram OFFICE EMPLOYEE-VOCATIONAL [employer] INSTRUCTOR Work Phone: Start: 11-28-2023 Adult depression screening assessment Concha Duque MD Work Phone: Start: 11-14-2023 Ecg routine ecg w/le ast 12 lds w/i&r Dejah Davies MD Work Phone: Start: 11-14-2023 Follow-up visit Follow-up DEJAH DAVIES Plan of Treatment Date Care Activity Detail Author Start: 09-06-2025 Adult BMI Screening Adult BMI Screening [facility] Start: 09-06-2025 Tobacco Screening Tobacco Screening [facility] Start: 08-30-2025 Adult BMI Screening Adult BMI Screening [facility] Start: 08-30-2025 Tobacco Screening Tobacco Screening [facility] Start: 08-02-2025 Adult BMI Screening Adult BMI Screening [facility] Start: 08-02-2025 Tobacco Screening Tobacco Screening [facility] Start: 07-26-2025 Adult BMI Screening Adult BMI Screening [facility] Start: 07-26-2025 Tobacco Screening Tobacco Screening [facility] Start: 07-17-2025 Adult BMI Screening Adult BMI Screening [facility] Start: 07-17-2025 Tobacco Screening Tobacco Screening [facility] Start: 07-03-2025 Tobacco Screening Tobacco Screening [facility] Start: 06-14-2025 Adult BMI Screening Adult BMI Screening [facility] Start: 06-14-2025 Tobacco Screening Tobacco Screening [facility] Start: 04-17-2025 Adult BMI Screening Adult BMI Screening [facility] Start: 04-17-2025 Tobacco Screening Tobacco Screening [facility] Start: 03-05-2025 Adult BMI Screening Adult BMI Screening [facility] Start: 02-14-2025 Adult BMI Screening Adult BMI Screening [facility] Start: 02-14-2025 Screening for Chlamydia trachomatis Chlamydia Screening [facility] Start: 02-14-2025 Tobacco Screening Tobacco Screening [facility] Start: 11-27-2024 Adult BMI Follow Up Plan Adult BMI Follow Up Plan [facility] Start: 11-27-2024 Adult BMI Screening Adult BMI Screening [facility] Start: 11-27-2024 Depression Screening Depression Screening [facility] Start: 11-27-2024 Screening for Chlamydia trachomatis Chlamydia Screening [facility] Start: 11-13-2024 Tobacco Screening [facility] Start: 10-11-2024 End: 10-11-2024 Patient encounter procedure 10/11/2024 1:00 PM EDT Appointment [facility] [address] [place] [facility] [address] [facility] Start: 10-03-2024 Adult BMI Screening Adult BMI Screening [facility] Start: 09-27-2024 End: 09-27-2024 Patient encounter procedure 09/27/2024 1:15 PM EST Routine [facility] [address] [place] [id number] Ariana Peterson, OFFICE EMPLOYEE-VOCATIONAL AUTO BODY INSTRUCTOR [address] [place] [address] [facility] Start: 09-08-2024 End: 10-06-2024 AFP Single Marker Scrn, Maternal, Serum AFP Single Marker Scrn, Maternal, Serum Lab Routine care, second trimester Expected: 09/08/2024, Expires: 10/06/2024 [facility] Work Phone: Comment on above: Expected: 09/08/2024, Expires: 5 Start: 08-30-2024 End: 08-30-2025 US MFM with or without consult US MFM with or without consult Imaging Routine care, second trimester Expected: 08/30/2024, Expires: 08/30/2025 [facility] Comment on above: Expected: 08/30/2024, Expires: Start: 08-30-2024 End: 08-30-2024 Patient encounter procedure 08/30/2024 10:15 AM EST Routine [facility] [address] [facility] [place] [address] Krys Palencia, OFFICE EMPLOYEE-VOCATIONAL AUTO BODY INSTRUCTOR [address] [place], [place] [id number] [facility] Start: 08-26-2024 Adult BMI Screening Adult BMI Screening [facility] Start: 08-26-2024 Tobacco Screening Tobacco Screening [facility] Start: 08-09-2024 End: 08-09-2025 Carrier Study [facility] Carrier Study [facility] Lab Routine Genetic screening Expected: 08/09/2024 (Approximate), Expires: 08/09/2025 [facility] Comment on above: Expected: 08/09/2024 (Approximate), Expi res: 08/09/2025 Start: 08-09-2024 End: 08-09-2025 Free Cell DNA ([facility]) Free Cell DNA ([facility]) Lab Routine Genetic screening Expected: 08/09/2024 (Approximate), Expires: 08/09/2025 [facility] Work Phone: Comment on above: Expected: 08/09/2024 (Approximate), Expi res: 08/09/2025 Start: 08-09-2024 End: 08-09-2024 Patient encounter procedure 08/09/2024 10:15 AM EST Procedure visit [facility] [address] [facility] [place] [id number] Krys Palencia, OFFICE EMPLOYEE-VOCATIONAL AUTO BODY INSTRUCTOR [address] [place], [place] [id number] [facility] Start: 08-02-2024 End: 08-02-2025 Chlamydia/GC by PCR Luis Fernando Swab Chlamydia/GC by PCR Luis Fernando Swab Microbiology Routine First trimester Expected: 08/02/2024 (Approximate), Expires: 08/02/2025 [facility] Work Phone: Comment on above: Expected: 08/02/2024 (Approximate), Expi res: 08/02/2025 Start: 08-02-2024 End: 08-02-2024 ambulatory 08/02/2024 9:00 AM EST Initial [facility] [address] [place] [phone] Sondra Hdz, OFFICE EMPLOYEE-[address], [address] [id number] [facility] Start: 07-31-2024 End: 07-31-2024 Patient encounter procedure 07/31/2024 8:00 AM EST Appointment [facility] - Ultrasound [address] [place] [phone] Krys Palencia, OFFICE EMPLOYEE-VOCATIONAL AUTO BODY INSTRUCTOR [address] [place], [place] [id number] [facility] - Ultrasound Start: 07-31-2024 Subsequent hospital visit by physician 07/31/2024 8:00 AM EST Hospital Encounter [facility] - Ultrasound [address] [place] [address] Krys Palencia, OFFICE EMPLOYEE-VOCATIONAL AUTO BODY INSTRUCTOR [address] [facility] [place] [place] [address] [facility] - Ultrasound Start: 07-14-2024 Adult BMI Screening Adult BMI Screening [facility] Start: 07-14-2024 Tobacco Screening Tobacco Screening [facility] Start: 07-03-2024 End: 07-03-2025 US transvaginal for Ultrasound less than 14 weeks with transvaginal Imaging Routine First trimester Expected: 07/03/2024, Expires: 07/03/2025 [facility] Work Phone: Comment on above: Expected: 07/03/2024, Expires: Start: 07-03-2024 End: 07-03-2024 Telemedicine consultation with patient 07/03/2024 1:00 PM EST Telemedicine [facility] [address] [facility] [place] [address] Krys Palencia, OFFICE EMPLOYEE-VOCATIONAL AUTO BODY INSTRUCTOR [address] [place] [address] [facility] Start: 04-01-2024 Influenza vaccination Influenza Vaccine [facility] Start: 03-24-2024 [facility] Start: 03-21-2024 Hospital admission [facility] Start: 03-21-2024 [facility] Start: 02-15-2024 End: 02-14-2025 Bacteria identified in Urine by Culture [facility] Comment on above: Expected: 02/15/2024 (Approximate), Expi res: 02/14/2025 Start: 02-15-2024 End: 02-14-2025 Chlamydia/GC by PCR Luis Fernando Swab [facility] Comment on above: Expected: 02/15/2024 (Approximate), Expi res: 02/14/2025 Start: 02-15-2024 End: 02-14-2025 Vaginitis Panel PCR [facility] Comment on above: Expected: 02/15/2024 (Approximate), Expi res: 02/14/2025 Start: 11-28-2023 End: 11-28-2023 Patient encounter procedure 11/28/2023 10:00 AM EDT Office Visit [facility] [address] [facility] [place] [phone] Concha Duque MD [address] [facility] [place], [place] [id number] [facility] Start: 11-14-2023 End: 11-14-2023 Patient encounter procedure 11/14/2023 12:30 PM EDT Office Visit [facility] Card[facility] [address] [place] [phone] Dejah Davies MD [address] [place] [address] [facility] Start: 10-04-2023 End: 10-04-2023 Patient encounter procedure [facility] - Cardiovascular Start: 08-26-2023 End: 08-26-2024 Echo complete W/O contrast Echo complete W/O contrast Echocardiography Routine Dizziness Light headedness Expected: 08/26/2023, Expires: 08/26/2024 [facility] Comment on above: Expected: 08/26/2023, Expires: Start: 08-26-2023 End: 08-26-2024 Holter monitor study Holter monitor 3-5 days Cardiac Services Routine Dizziness Light headedness Expected: 08/26/2023, Expires: 08/26/2024 [facility]: Comment on above: Expected: 08/26/2023, Expires: Start: 08-26-2023 End: 08-26-2023 Patient encounter procedure 08/26/2023 1:30 PM EST Office Visit [facility] [address] [place] [address] Osei Mercado MD [address] [place] [address] [facility] Start: 04-10-2023 Screening for Chlamydia trachomatis Chlamydia Screening [facility] Start: 04-01-2023 Influenza vaccination Influenza Vaccine [facility] Start: 06-27-2022 DTaP,Tdap and Td Vaccines (6 - Td or Tdap) DTaP,Tdap and Td Vaccines (6 - Td or Tdap) [facility] Start: 2020 Screening for malignant neoplasm of cervix Pap Smear [facility] Start: 2017 Adult BMI Follow Up Plan Adult BMI Follow Up Plan [facility] Start: 2011 [facility] Start: 1999 Tobacco Counseling [facility] Counseling [facility] End: 07-03-2025 Bacteria identified in Urine by Culture Urine Culture Microbiology Routine First trimester 1 Occurrences starting 07/03/2024 until 07/03/2025 [facility] Comment on above: 1 Occurrences starting 07/03/2024 until 07/03/2025 End: 07-03-2025 CBC panel - Blood by Automated count CBC without diff Lab Routine First trimester 1 Occurrences starting 07/03/2024 until 07/03/2025 [facility] Comment on above: 1 Occurrences starting 07/03/2024 until 07/03/2025 End: 11-27-2024 Chlamydia/GC by PCR Luis Fernando Swab Chlamydia/GC by PCR Luis Fernando Swab Microbiology Routine Screening for STD (sexually transmitted disease) 1 Occurrences starting 11/28/2023 until 11/27/2024 [facility] Work Phone: Comment on above: 1 Occurrences starting 11/28/2023 until 11/27/2024 Chlamydia/GC by PCR Luis Fernando Swab Chlamydia/GC by PCR Luis Fernando Swab Microbiology Routine Screening for STD (sexually transmitted disease) 11/28/2023 7:07 PM EDT [facility] End: 07-03-2025 Drug Screen, Urine Drug Screen, Urine Lab Routine First trimester 1 Occurrences starting 07/03/2024 until 07/03/2025 [facility] Comment on above: 1 Occurrences starting 07/03/2024 until 07/03/2025 End: 07-03-2025 HCG, Quantitative, HCG, Quantitative, Lab Routine First trimester 1 Occurrences starting 07/03/2024 until 07/03/2025 [facility] Comment on above: 1 Occurrences starting 07/03/2024 until 07/03/2025 End: 07-03-2025 Hepatitis panel, acute Hepatitis panel, acute Lab Routine First trimester 1 Occurrences starting 07/03/2024 until 07/03/2025 [facility] Comment on above: 1 Occurrences starting 07/03/2024 until 07/03/2025 End: 11-27-2024 Hepatitis panel, acute Hepatitis panel, acute Lab Routine Screening for STD (sexually transmitted disease) 1 Occurrences starting 11/28/2023 until 11/27/2024 [facility] Comment on above: 1 Occurrences starting 11/28/2023 until 11/27/2024 End: 07-03-2025 HIV 1&2 AB/AG Screen (P24 AG) HIV 1&2 AB/AG Screen (P24 AG) Lab Routine First trimester 1 Occurrences starting 07/03/2024 until 07/03/2025 [facility] Comment on above: 1 Occurrences starting 07/03/2024 until 07/03/2025 End: 11-27-2024 HIV 1&2 AB/AG Screen (P24 AG) HIV 1&2 AB/AG Screen (P24 AG) Lab Routine Screening for STD (sexually transmitted disease) 1 Occurrences starting 11/28/2023 until 11/27/2024 [facility] Comment on above: 1 Occurrences starting 11/28/2023 until 11/27/2024 Patient Education Depression, Ad ult (DC) Bipolar Disorder (DC) [facility] DC Instructions Know your [facility] Work Phone: Patient referral [facility] Work Phone: End: 07-03-2025 Rubella IGG immune status Rubella IGG immune status Lab Routine First trimester 1 Occurrences starting 07/03/2024 until 07/03/2025 [facility] Comment on above: 1 Occurrences starting 07/03/2024 until 07/03/2025 End: 07-03-2025 Syphilis Total(Unknown Syphilis Status) Syphilis Total(Unknown Syphilis Status) Lab Routine First trimester 1 Occurrences starting 07/03/2024 until 07/03/2025 [facility] Comment on above: 1 Occurrences starting 07/03/2024 until 07/03/2025 End: 11-27-2024 Syphilis Total(Unknown Syphilis Status) Syphilis Total(Unknown Syphilis Status) Lab Routine Screening for STD (sexually transmitted disease) 1 Occurrences starting 11/28/2023 until 11/27/2024 [facility] Comment on above: 1 Occurrences starting 11/28/2023 until 11/27/2024 End: 07-03-2025 Type and screen Type and screen Blood Bank Routine First trimester 1 Occurrences starting 07/03/2024 until 07/03/2025 [facility] Comment on above: 1 Occurrences starting 07/03/2024 until 07/03/2025 End: 07-03-2025 Urinalysis Urinalysis Lab Routine First trimester 1 Occurrences starting 07/03/2024 until 07/03/2025 [facility] Comment on above: 1 Occurrences starting 07/03/2024 until 07/03/2025 End: 02-14-2025 Urinalysis Urinalysis Lab Routine Dysuria 1 Occurrences starting 02/15/2024 until 02/14/2025 [facility] Work Phone: Comment on above: 1 Occurrences starting 02/15/2024 until 02/14/2025 Urinalysis Urinalysis Lab R outine Dysuria 02/15/2024 7:32 PM EDT [facility] End: 11-27-2024 Vaginitis Panel PCR Vaginitis Panel PCR Microbiology Routine Screening for STD (sexually transmitted disease) 1 Occurrences starting 11/28/2023 until 11/27/2024 [facility] Comment on above: 1 Occurrences starting 11/28/2023 until 11/27/2024 Vaginitis Panel PCR Vaginitis Pa claudia PCR Microbiology Routine Screening for STD (sexually transmitted disease) 11/28/2023 7:07 PM EDT [facility] End: 07-03-2025 Varicella zoster antibody, IgG Varicella zoster antibody, IgG Lab Routine First trimester 1 Occurrences starting 07/03/2024 until 07/03/2025 [facility] Comment on above: 1 Occurrences starting 07/03/2024 until 07/03/2025 Immunizations Immunization Date Immunization Notes Care Provider Natalia batista 06-05-2007 influenza virus vaccine, unspecified formulation Caro Frazier [facility] Payers Date Payer Category Payer Medicaid [facility] [id number] 2024 Self-pay 2022 Medicaid [employer] HMO [id number] 2022-Present [phone] [address] [place] [address] [id number] 2022 Medicaid [id number] 1999 Unknown [id number] 2..[id number] 1999 Unknown [id number] 2.16.840.1.643025.3.579.2.1286 1999 Unknown [id number] 2.16.840.1.431019.3.579.2.1286 1999 Unknown [id number] 2.16.840.1.793973.3.579.2.1286 1999 Unknown [id number] 2.16.840.1.512233.3.579.2.1286 1999 Unknown [id number] 2.16.840.1.967413.3.579.2.1286 1999 Unknown [id number] 2.16.840.1.468956.3.579.2.1286 1999 Unknown [id number] 2.16.840.1.571605.3.579.2.1286 1999 Unknown [id number] 2.16.840.1.899224.3.579.2.1286 1999 Unknown [id number] 2.16.840.1.614697.3.579.2.1286 1999 Unknown [id number] 2.16.840.1.224358.3.579.2.1286 1999 Unknown [id number] 2.16.840.1.083373.3.579.2.1286 1999 Unknown [id number] 2.16.840.1.394337.3.579.2.1286 1999 Unknown [id number] 2.16.840.1.793237.3.579.2.1286 1999 Unknown [id number] 2.16.840.1.557861.3.579.2.1286 1999 Unknown [id number] 2.16.840.1.727413.3.579.2.1286 1999 Unknown [id number] 2.16.840.1.298835.3.579.2.1286 1959 Unknown [id number] Unknown [id number] 2.16.840.1.469351.3.579.2.593 Unknown [id number] 2.16.840.1.297255.3.579.2.531 Unknown [id number] 2.16.840.1.932497.3.579.2.531 Social History Date Type Detail Facility Start: 08-11-2022 Tobacco smoking stat us [facility] Occasional tobacco smoker [facility] End: 06-28-2024 History of tobacco use [facility] Start: 08-11-2022 End: 07-03-2024 Tobacco use and exposure Smokeless tobacco non-user [facility] Start: 07-15-2023 End: 09-06-2024 Alcohol intake Current non-drinker of alcohol (finding) [facility] Start: 09-10-2020 End: 07-14-2023 History of Social function [facility] Start: 09-10-2020 End: 07-14-2023 Tobacco use panel [facility] Childcare Unknown [facility] Start: 1999 Sex Assigned At Not on file P [facility] Start: 03-22-2024 End: 06-28-2024 Tobacco smoking status NHIS Smoker (finding) [facility] Start: 1999 Sex Assigned At Female F [facility] Start: 03-04-2015 Sex Female (finding) [facility] Start: 07-03-2024 [facility] Start: 06-02-2024 [facility] Goals Date Patient Goal Desired Activity /State Functional Status Date Assessment Result Facility 03-24-2024 Functional status Patient at Baseline [facility] Work Phone: Mental Status Date Assessment Result Facility 03-24-2024 Cognitive function Cognitive Sta tus Patient at Baseline [facility] Work Phone: Clinical Notes 08-25-2023 to 09-07-2024 Telephone Encounter - Breanna Bhatti, [facility] - 09/07/2024 2:59 PM ESTTelephone Encounter - Breanna Bhatti [facility] - 09/07/2024 2:59 PM Raysa Yun APRN-JULIETA - 08/31/2024 6:54 PM EST Note Date & Type Note Facility 09-07-2024 Miscellaneous Notes Patient called in with concerns of constipation. Patient reports she has been to the ED twice and is still not able to go and is having pretty significant cramping. Spoke with Sondra Hdz CNM in office and she advises for pt to present to ED again for treatment. Pt also advised to take Miralax daily per CNM. Advised pt to call office back if she has any other concerns. documented in this encounter [facility] 09-07-2024 Telephone encounter Note Patient called in with concerns of constipation. Patient reports she has been to the ED twice and is still not able to go and is having pretty significant cramping. Spoke with Sondra Hdz CNM in office and she advises for pt to present to ED again for treatment. Pt also advised to take Miralax daily per CNM. Advised pt to call office back if she has any other concerns. [facility] 08-31-2024 History of Presen t illness Narrative Pt calls in reporting lifetime hx of constipation which has been worse since taking zofran during this . Has been taking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 intact. Neck: No JVD, No carotid bruit. Neck supple, trachea midline. Respiratory: Clear to auscultation bilaterally, no use of accessory muscles. Cardiovascular: RRR with normal S1 and S2 with no murmurs. Gastrointestinal: Soft, non-tender. Bowel sounds normal. Musculoskeletal: No peripheral edema. Neurologic: Oriented to time, person and place, affect appropriate. No focal/major motor defects noted. Psychiatric: Appropriate mood, memory and judgement. VITAL SIGNS: BP 110/60 (BP Site: Left Arm, BP Postition: Sitting) Pulse 80 Ht 160 cm (5' 3 ) Wt 64.9 kg (143 lb) SpO2 97% BMI 25.33 kg/m No orders of the defined types were placed in this encounter. Medications Discontinued During This Encounter Medication Reason benzocaine-menthoL (CHLORASEPTIC SORE THROAT) 6-10 mg lozenge Therapy completed benzonatate (TESSALON PERLES) 100 mg capsule Therapy completed ondansetron ODT (ZOFRAN ODT) 4 mg disintegrating tablet Therapy completed ibuprofen (MOTRIN) 800 mg tablet Therapy completed IMPRESSIONS/PLAN 1. Dizziness - Holter monitor 3-5 days; Future - Echo complete W/O contrast; Future 2. Light headedness - Holter monitor 3-5 days; Future - Echo complete W/O contrast; Future 1. Dizziness Ordered a Holter Monitor to be worn for a 5 days and echocardiogram to evaluate cardiac function and determine if cardiomyopathy is a potential risk for the patient. Further evaluation and testing based on a results. Smoking cessation advised. Follow-up in 3 months. 2. Light headedness Discussed with the patient the diagnosis and treatment plan. Answered all questions to the patientssatisfaction. Patient is agreeable to the plan of care. TODAYS ORDERS Orders Placed This Encounter Procedures Holter monitor 3-5 days Echo complete W/O contrast FOLLOW UP Return in about 3 months (around 11/25/2023). PCP: Anuja Max MD Referring Physician: Anuja Max MD [address] [place] [phone] A total of 20 minutes were spent with the patient, of which more than 50% consisted of counseling. Scribed for and in the presence of Osei Mercado MD by Murali Stubbs. Murali Stubbs 08/26/2023 1:49 PM documented in this encounterSumma Health01-26-2024 Instructions* Patient Instructions* Caro Freddie, [facility] - 08/26/2023 1:30 PM EST Are You Ready To Kick The Habit? Free Tobacco Cessation Resources [facility] provide all employees with free tobacco cessation services that include: Counseling to understand nicotine addiction Education about medications that can help you successfully quit Assistance with developing a plan to quit Call to set up an individual appointment or find out when group classes will be held: [facility]: [phone] [facility]: [phone] [facility]: [phone] [facility]: [phone] Quit Smoking Action Plan and Resources [facility] offers an eight-week, online smoking cessation plan to all [facility] employees, regardless of whether [employer] is your medical insurance provider. Go to [email or web address] and click the Health Risk Assessment and Resources link to get started. In the [employer] menu, click Action Plans instead of Health Risk Assessment to access the Quit Smoking Action Plan. Additional smoking cessation resources are also available to all [facility] employees on the Lelrh8Wziwvx web page at [email or web address].Tidy Books/quitsmoking. [employer] Tobacco Cessation Program If [employer] is your medical insurance provider, there are more free resources available to you, including: No copays or deductibles on local tobacco cessation counseling services to help you quit Prescription assistance for tobacco cessation medications to help you quit For details about the tobacco cessation program available to [employer] members, go to www.HeadMix.CopperKey (Search: Tobacco Cessation Program). [place] Tobacco Quit Line 8-683-BEHR-NOW ( ) is a toll-free, telephonic service that helps [place] residents quit smoking and using tobacco. It is staffed by experts who tailor a quit plan for you and provide you with advice. [place] Tobacco Quit Line 9-757-PWEO-NOW ( ) is a toll-free, telephonic service that helps [place] residents quit smoking and using tobacco. It is staffed by experts who tailor a quit plan for you and provide you with advice. Two weeks of nicotine replacement therapy may be provided at no charge, if needed. Additional Resources These national organizations also offer free information and resources to help you quit tobacco: [place] Cancer Society--www.cancer.org/healthy/stayawayfromtobacco [place] Heart Association--www.heart.org (Search: Quit Smoking) Centers for Disease Control and Prevention--www.cdc.gov/tobacco [place] Lung Association--www.lungusa.org documented in this encounterSalem City HospitalRed Bend Software [id number] Miscellaneous Notes* Telephone Encounter - Caro Frazier CMA - 08/25/2023 10:40 AM EST Called patient to remind them to bring their most current copy of their medication list with them to their appt. Patient verbalizes understanding. documented in this encounterSalem City HospitalRed Bend Software [id number] Telephone encounter Note* Telephone Encounter - Caro Frazier CMA - 08/25/2023 10:40 AM EST Called patient to remind them to bring their most current copy of their medication list with them to their appt. Patient verbalizes understanding. [facility] SystemEvaluation note* Diagnosis Dizziness- Primary Dizziness and giddiness Light headedness [facility] System[facility]* Diagnosis Onset Date Resolution Status Anxiety acute Bipolar 1 disorder acute Dependent personality disorder [facility] Work Phone: Evaluation note* Diagnosis First trimester - Primary state, incidental [facility]* Diagnosis Nausea/vomiting in - Primary Unspecified vomiting of , unspecified as to episode of care [facility]* Diagnosis with 10 completed weeks gestation- Primary First trimester state, incidental [facility]* Diagnosis Nausea/vomiting in Unspecified vomiting of , unspecified as to episode of care [facility]* Diagnosis Nausea and vomiting in prior to 22 weeks gestation- Primary [facility]* Diagnosis Genetic screening- Primary Other genetic screening [facility]* Diagnosis BV (bacterial vaginosis)- Primary Unspecified vaginitis and vulvovaginitis Vaginal yeast infection Candidiasis of vulva and vagina [facility]* Diagnosis Dizziness- Primary Dizziness and giddiness Light headedness [facility]* Diagnosis Missed period- Primary [facility]* Diagnosis Vaginal itching- Primary Pruritus of genital organs Vaginal burning Other specified symptom associated with female genital organs Screening examination for STD (sexually transmitted disease) Dysuria documented [facility]* Diagnosis Screening for STD (sexually transmitted disease)- Primary Encounter for gynecological examination without abnormal finding [facility]* Diagnosis care, second trimester- Primary Nausea/vomiting in Unspecified vomiting of , unspecified as to episode of care [facility] Diagnosis Nausea/vomiting in Unspecified vomiting of , unspecified as to episode of care documented in this encounter [facility] SystemInstructionsNot on filedocumented in this encounter [facility] SystemInstructionsNot on filedocumented in this encounter [facility]Inst[facility]* Attachments The following attachments cannot be sent through Care Everywhere. * Activity during (Grenadian) * How to Adapt to Physical Changes During (Grenadian) * care (Grenadian) [facility] SystemInstructionsNot on file documented in this encounterProYemekse[facility]i SystemInstructionsNot on file documented in this encounterLookinhotels SystemInstructionsNot on file documented in this encounterLookinhotels SystemInstructions* Attachments The following attachments cannot be sent through Care Everywhere. * Activity during (Grenadian) * Alcohol and drug use in (Grenadian) * Cell-Free DNA Screening (Grenadian) * Healthy Weight Gain During (Grenadian) * Medications and (Grenadian) * Nutrition before and during (Grenadian) * Taking in Enough Fluids While You Are (Grenadian) * Asthma and (Grenadian) * Morning sickness (Grenadian) documented in this encounterProYem[facility] SystemInstructionsNot on file documented in this encounterProYemek[facility] SystemInstructionsNot on file documented in this encounterLookinhotels SystemInstructionsNot on file documented in this encounterProYemeksepeti SystemInstructionsNot on file documented in this encounterProYem[facility]i SystemInstructionsNot on file documented in this encounterProYemeksepeti SystemInstructionsNot on file documented in this encounterProYemeksepeti SystemInstructions* Attachments The following attachments cannot be sent through Care Everywhere. * Vaginitis (Grenadian) documented in this encounterProYemeksepeti SystemInstructionsNot on file documented in this encounterProYemek[facility]i SystemInstructions* Attachments The following attachments cannot be sent through Care Everywhere. * The Fourth Month (Grenadian) * Quad Test (Grenadian) documented in this encounterProYemeksepeti SystemInstructionsNot on file documented in this [facility] Summary Purpose Family History Relationship Condition Age at Onset Recorded Date/T harley brother Attempted suicide Unknown Advance Directives Advance Directive Response Recorded Date/ Time Advance Directives No March 21, 2024 10:25pm Reason for Referral Specialty Diagnoses / Procedures Referred By Rhonda taylor Referred To Contact Diagnoses Dizziness Light headedness Procedures Echo complete W/O contrast Osei Mercado MD [address] [place] [address] Referral ID Status Reason Start Date Expiration Date V isits Requested Visits Authorized [id number] Pending Review 08/26/2023 08/25/2024 1 1 Specialty Diagnoses / Procedures Referred By Rhonda taylor Referred To Contact Diagnoses Dizziness Light headedness Procedures Holter monitor 3-5 days Osei Mercado MD [address] [place] [address] Referral ID Status Reason Start Date Expiration Date V isits Requested Visits Authorized [id number] Pending Review 08/26/2023 08/25/2024 1 1 Chief Complaint and Reason for Visit Chief Complaint MDD MDD Reason for Visit Anxiety Bipolar 1 disorder Dependent personality disorder Additional Source Comments INFORMATION SOURCE (unrecogn ized section and content) DATE CREATED AUTHOR 08/05/2021 [facility] DATE CREATED AUTHOR AUTHOR'S ORGANIZ ATION 05/27/2022 [facility] Special[facility] DATE CREATED AUTHOR AUTHOR'S ORGANIZ ATION 04/14/2024 [facility] DATE CREATED AUTHOR AUTHOR'S ORGANIZ ATION 06/16/2024 [facility] DATE CREATED AUTHOR AUTHOR'S ORGANIZ ATION 07/28/2024 [facility] DATE CREATED AUTHOR AUTHOR'S ORGANIZ ATION 08/10/2024 [facility] DATE CREATED AUTHOR AUTHOR'S ORGANIZ ATION 09/01/2024 [facility] Care Teams (unrecognized sec tion and content) Rotary Swaging Machine Operator Relationship Specialty Start Date End Date Anuja Max MD [address] [place] [phone] PCP - General Family Medicine 03/07/17 [employer]ary Swaging Machine Operator Relationship Specialty Start Date End Date Anuja Max MD [address] [place] [address] [phone] PCP - General Family Medicine 03/07/17 Team Status: Active Member Role Status Dates Anuja Max MD Primary Care Provider Active Team Status: Inactive Member Role Status Dates Anuja Max MD Primary Care Provider Active Start: March 21, 2024 End: March 24, 2024 Gabe Regan MD Admit Provider, Atte nding Provider Active Start: March 21, 2024 End: March 24, 2024 Team Status: Active Member Role Status Dates Anuja Max MD Primary Care Provider Active Start: March 22, 2024 Gabe Regan MD Admit Provider, Atte nding Provider, Other Provider Active Start: March 22, 2024 [employer] Swaging Machine Operator Relationship Specialty Start Date End Date Anuja Max MD [address] [phone] PCP - General Family Medicine 03/07/17 Rotary Swaging Machine Operator Relationship Specialty Start Date End Date Anuja Max MD [address] [address] PCP - General Family Medicine 06/14/24 [employer]ary Swaging Machine Operator Relationship Specialty Start Date End Date Anuja Max MD [address] [address] PCP - General Family Medicine 06/14/24 Rotary Swaging Machine Operator Relationship Specialty Start Date End Date Anuja Max MD [address] [address] PCP - General Family Medicine 06/14/24 Rotary Swaging Machine Operator Relationship Specialty Start Date End Date Anuja Max MD [address] [address] PCP - General Family Medicine 06/14/24 Rotary Swaging Machine Operator Relationship Specialty Start Date End Date Anuja Max MD [address] [address] PCP - General Family Medicine 06/14/24 Rotary Swaging Machine Operator Relationship Specialty Start Date End Date Anuja Max MD [address] [address] PCP - General Family Medicine 06/14/24 Rotary Swaging Machine Operator Relationship Specialty Start Date End Date Anuja Max MD [address] [address] PCP - General Family Medicine 06/14/24 Rotary Swaging Machine Operator Relationship Specialty Start Date End Date Anuja Max MD [address] [address] PCP - General Family Medicine 06/14/24 Rotary Swaging Machine Operator Relationship Specialty Start Date End Date Anuja Max MD [address] [address] PCP - General Family Medicine 03/07/17 Rotary Swaging Machine Operator Relationship Specialty Start Date End Date Anuja Max MD [address] [phone] PCP - General Family Medicine 03/07/17 Rotary Swaging Machine Operator Relationship Specialty Start Date End Date Anuja Max MD [address] [address] PCP - General Family Medicine 03/07/17 Rotary Swaging Machine Operator Relationship Specialty Start Date End Date Anuja Max MD [address] [address] PCP - General Family Medicine 03/07/17 Rotary Swaging Machine Operator Relationship Specialty Start Date End Date Anuja Max MD [address] [address] PCP - General Family Medicine 06/14/24 Rotary Swaging Machine Operator Relationship Specialty Start Date End Date Anuja Max MD [address] [place] [phone] PCP - General Family Medicine 06/14/24 Reason for Visit (unrecogniz ed section and content) Reason Comments New Patient [employer] - self ref for ra cing heart, CP, swelling, lightheaded and dizziness - was at [facility] ED 07/13 for symptoms, covid 2020 - family h/o cardiomyopathy - appt sched w/ pt mom Reason Comments Initial Visit OBI Reason Onset Date Comments Fever 07/04/2024 Nausea 07/04/2024 Reason Comments Initial Visit Reason Comments Med Change Request Reason Comments Genetic Screening Reason Comments Follow-up 3 MONTH Dizziness Shortness of Breath Palpitations Reason Comments Annual Exam Reason Comments Routine Visit Reason Onset Date Comments Constipation 08/14/2024 FOR RECORDS PERTAINING TO PATIENTS WHO ARE OR HAVE BEEN ENROLLED IN A CHEMICAL DEPENDENCY/SUBSTANCEABUSE PROGRAM, SOME INFORMATION MAY BE OMITTED. This clinical summary was aggregated from multiple sources. Caution should be exercised in using it in the provision of clinical care. This summary normalizes information from multiple sources, and as a consequence, information in this document may materially change the coding, format and clinical context of patient data. In addition, data may be omitted in some cases. CLINICAL DECISIONS SHOULD BE BASED ON THE PRIMARY CLINICAL RECORDS. [employer] provides no warranty or guarantee of the accuracy or completeness of information in this document.
[2024-09-07 20:56] LABS: Basophils Percent Auto 0.3 % (0.2-2.0); Eosinophils Absolute Auto 0.4 10^3/uL (0.0-0.7); Eosinophils Percent Auto 4.9 % (0.9-7.0); Hematocrit 37.3 % (36.0-48.0); Immature Granulocytes Abs Auto 0.03 10^3/uL (0.00-0.03); Immature Granulocytes Pct Auto 0.3 % (0.0-0.5); Lymphocytes Absolute Auto 2.2 10^3/uL (1.2-3.8); Lymphocytes Percent Auto 24.8 % (20.5-60.0); Mean Corpuscular HGB Conc 32.2 g/dL (29.9-35.2); Mean Corpuscular Hemoglobin 29.7 pg (26.7-34.0); Mean Corpuscular Volume 92.3 fL (81.0-99.0); Mean Platelet Volume 10.9 fL (9.5-13.5); Monocytes Absolute Auto 0.5 10^3/uL (0.3-0.8); Monocytes Percent Auto 5.8 % (1.7-12.0); Neutrophils Absolute Auto 5.6 10^3/uL (1.4-6.5); Neutrophils Percent Auto 63.9 % (43.0-75.0); Platelet Count 311 10^3/uL (150-450); Red Blood Count 4.04 10^6/uL (4.20-5.40); White Blood Count 8.7 10^3/uL (4.0-11.0)
[2024-09-07 20:57] LABS: Bilirubin Urine NEGATIVE (NEGATIVE); Blood Urine NEGATIVE (NEGATIVE); Clarity Urine SL CLOUDY (CLEAR); Color Urine LT. YELLOW (YELLOW); Glucose Urine UA NEGATIVE (NEGATIVE); Ketones Urine NEGATIVE (NEGATIVE); Leukocyte Esterase Urine SMALL (NEGATIVE); Nitrite Urine NEGATIVE (NEGATIVE); Protein Urine NEGATIVE (NEG/TRACE); Urobilinogen Urine 0.2 EU/dL (0.2-1.0)
[2024-09-07 21:03] LABS: Bacteria Urine MODERATE #/HPF (NONE SEEN); Cast Seen? NONE SEEN #/LPF (NONE SEEN); Crystals Seen? None Seen #/HPF (None Seen); Mucus Urine MODERATE (NONE SEEN); RBC Urine 0-2 #/HPF (0-2); Squamous Epithelial Cell Urine MODERATE #/LPF (NONE/RARE)
[2024-09-07 21:04] LABS: Urine Culture Indicated YES
[2024-09-07 21:05] LABS: Anion Gap 12.4; BUN Creatinine Ratio 7.8; Calcium 9.1 mg/dL (8.5-10.1); Carbon Dioxide 26.4 mmol/L (21.0-32.0); Chloride 104 mmol/L (98-107); Estimated GFR (African America >60 (>=60 mL/min/1.73m^2); Estimated GFR (Non-African Ame >60 (>=60 mL/min/1.73m^2); Glucose 91 mg/dL (74-106); Potassium 3.8 mmol/L (3.5-5.1); Sodium 139 mmol/L (136-145)
--- NOTE | 2024-09-07 21:24 | ED.GENADUL1 ---
HPI HPI - General Adult General Chief complaint: Abdominal Pain Stated complaint: 16 wks preg-cramping. [facility] req seen ED first Time Seen by Provider: 09/07/24 20:21 Source: patient Mode of arrival: walk-in History of Present Illness HPI narrative: 24-year-old female presents for cramping in her abdomen. She is 16 weeks and has not had a bowel movement in about 4 days. She had taken a suppository but it did not seem to help. No vaginal bleeding and she has had no issues from an obstetrics standpoint. No vomiting or fever. She was seen at another hospital last night and had an ultrasound which showed normal IUP. Related Data Home Medications ?Medication ?Instructions ?Recorded ?Confirmed aripiprazole 2 mg tablet 4 mg PO DAILY 03/21/24 03/21/24 sertraline 100 mg tablet 100 mg PO BEDTIME 03/21/24 03/21/24 Allergies Allergy/AdvReac Type Severity Reaction Status Date / Time Penicillins AdvReac Mild Hives Verified 03/21/24 18:05 Opioid HPI Opioid Management Most Recent Opioid Data: Ur Phencyclidine Scrn Negative (NEGATIVE) 03/21/24 18:30 03/21/24 Review of Systems ROS Narrative A ten point review of systems is negative except as noted above. PFSH PFSH Social History Little interest or pleasure in doing things: not at all Feeling down, depressed, or hopeless: not at all Exam Narrative Exam Narrative: Nurses note and vital signs reviewed and patient is not hypoxic. General: The patient appears well and in no apparent distress. Patient is resting comfortably on cart. Skin: Warm, dry, no pallor noted. There is no rash noted. Head: Normocephalic, atraumatic Eye: Normal conjunctiva, no drainage Ears, Nose, Mouth, and Throat: oral mucosa is moist. Nares patent. Cardiovascular: Regular Rate and Rhythm Respiratory: Patient is in no distress, no accessory muscle use, lungs are clear to auscultation, no wheezing, rales or rhonchi Back: non-tender GI: Soft and nontender Musculoskeletal: The patient has no evidence of calf tenderness, no pitting edema, symmetrical pulses noted bilaterally Neurological: A&O, normal speech Psychiatric: Cooperative Constitutional Vital Signs, click to edit/add: Last Vital Signs Temp 98.3 F 09/07/24 20:21 Pulse 88 09/07/24 20:21 Resp 16 09/07/24 20:21 BP 97/60 09/07/24 20:21 Pulse Ox 98 09/07/24 20:21 O2 Del Method Room Air 09/07/24 20:21 Course Vital Signs Vital signs: Vital Signs Temperature 98.3 F 09/07/24 20:21 Pulse Rate 88 09/07/24 20:21 Respiratory Rate 16 09/07/24 20:21 Blood Pressure 97/60 09/07/24 20:21 Pulse Oximetry 98 09/07/24 20:21 Oxygen Delivery Method Room Air 09/07/24 20:21 Temperature 98.3 F 09/07/24 20:21 Pulse Rate 88 09/07/24 20:21 Respiratory Rate 16 09/07/24 20:21 Blood Pressure 97/60 09/07/24 20:21 Pulse Oximetry 98 09/07/24 20:21 Oxygen Delivery Method Room Air 09/07/24 20:21 Medical Decision Making MDM Narrative Medical decision making narrative: Work is essentially normal. Urine culture is pending. She was recommended MiraLAX. Treatment diagnosis and follow-up were discussed with the patient and her mother. Differential Diagnosis Differential Diagnosis: Constipation, UTI, dehydration Lab Data Lab results reviewed: Yes I reviewed the patient's lab results Labs: Lab Results 09/07/24 09/07/24 Range/Units 20:45 20:50 WBC 8.7 (4.0-11.0) 10^3/uL RBC 4.04 L (4.20-5.40) 10^6/uL Hgb 12.0 (12.0-16.0) g/dL Hct 37.3 (36.0-48.0) % MCV 92.3 (81.0-99.0) fL MCH 29.7 (26.7-34.0) pg MCHC 32.2 (29.9-35.2) g/dL RDW 14.0 (11.0-15.0) % Plt Count 311 (150-450) 10^3/uL MPV 10.9 (9.5-13.5) fL Neut % (Auto) 63.9 (43.0-75.0) % Lymph % (Auto) 24.8 (20.5-60.0) % Churchill % (Auto) 5.8 (1.7-12.0) % Eos % (Auto) 4.9 (0.9-7.0) % Baso % (Auto) 0.3 (0.2-2.0) % Neut # (Auto) 5.6 (1.4-6.5) 10^3/uL Lymph # (Auto) 2.2 (1.2-3.8) 10^3/uL Churchill # (Auto) 0.5 (0.3-0.8) 10^3/uL Eos # (Auto) 0.4 (0.0-0.7) 10^3/uL Baso # (Auto) 0.0 (0.0-0.1) 10^3/uL Abs Immat Gran (auto) 0.03 (0.00-0.03) 10^3/uL Imm/Tot Granulo (auto) 0.3 (0.0-0.5) % Sodium 139 (136-145) mmol/L Potassium 3.8 (3.5-5.1) mmol/L Chloride 104 (98-107) mmol/L Carbon Dioxide 26.4 (21.0-32.0) mmol/L Anion Gap 12.4 BUN 4.0 L (7.0-18.0) mg/dL Creatinine 0.51 L (0.55-1.02) mg/dL Est GFR ( Amer) >60 (>=60 mL/min/1.73m^2) Est GFR (Non-Af Amer) >60 (>=60 mL/min/1.73m^2) BUN/Creatinine Ratio 7.8 Glucose 91 (74-106) mg/dL Calcium 9.1 (8.5-10.1) mg/dL Urine Color Lt. yellow (YELLOW) Urine Clarity Sl cloudy (CLEAR) Urine pH 7.0 (5.0-9.0) Ur Specific [place] 1.020 (1.005-1.025) Urine Protein Negative (NEG/TRACE) mg/dL Urine Glucose (UA) Negative (NEGATIVE) mg/dL Urine Ketones Negative (NEGATIVE) mg/dL Urine Occult Blood Negative (NEGATIVE) Urine Nitrite Negative (NEGATIVE) Urine Bilirubin Negative (NEGATIVE) Urine Urobilinogen 0.2 (0.2-1.0) EU/dL Ur Leukocyte Esterase Small A (NEGATIVE) Urine RBC 0-2 (0-2) #/HPF Urine WBC 5-10 A (NONE SEEN) #/HPF Ur Squamous Epith Cells Moderate A (NONE/RARE) #/LPF Urine Crystals None seen (None Seen) #/HPF Urine Bacteria Moderate A (NONE SEEN) #/HPF Urine Casts None seen (NONE SEEN) #/LPF Urine Mucus Moderate A (NONE SEEN) Ur Culture Indicated? Yes Discharge Plan Discharge Chief Complaint: Abdominal Pain Clinical Impression: Constipation Patient Disposition: Home, Self-Care Time of Disposition Decision: 21:43 Condition: Good Mode of Transportation: Private Vehicle Prescriptions / Home Meds: No Action aripiprazole 2 mg tablet 4 mg PO DAILY sertraline 100 mg tablet 100 mg PO BEDTIME Print Language: Setswana Instructions: Constipation (ED) Additional Instructions: [id number] MiraLAX for constipation. Use as directed. Referrals: CLARA WILEY [Primary Care Provider] - 1 week
[2024-09-07 21:49] VITALS: BP 95/70; PULSE 77; O2SAT 99
== END 2024-09-07 21:49 | disposition home or self-care (01) ==
PROVIDERS: Emergency Provider Emergency Medicine; PCP Family Medicine
DX: O99.612 Diseases of the digestive system complicating pregnancy, second trimester (principal); K59.00 Constipation, unspecified; Z3A.16 16 weeks gestation of pregnancy
CPT/HCPCS: 36415; 80048; 81001; 85025; 87086; 99285